=== PATIENT | male | born 1960 ===

== ENCOUNTER 2017-03-14 14:38 | Inpatient (IN) | payer BC ==
[2017-03-14 15:18] VITALS: BMI 28.3
--- NOTE | 2017-03-14 15:54 | ED PDOC ---
Arrival/HPI - General Chief Complaint: Abnormal Skin Integrity Time Seen by Provider: 03/14/17 15:23 Historian: Patient - History of Present Illness Narrative History of Present Illness (Text): 03/14/17 15:47 56-year-old diabetic male sent by Dr. Ghotra for infected right foot ulceration. Patient states he developed pain about 2 days ago. Patient states he is being followed by Dr. Ghotra in the wound center. The patient denies fevers or chills. No dizziness or weakness. Patient states he is not currently on antibiotics. Patient with prior amputation of the right fifth toe and now with continued ulceration. Time/Duration: Other (2 days) Past Medical History - Provider Review Nursing Documentation Reviewed: Yes - Travel History Have you recently traveled outside [place] w/in the past 3 mons?: No - Infectious Disease Hx of Infectious Diseases: None - Tetanus Immunization Tetanus Immunization: Unknown - Cardiac Hx Cardiac Disorders: Yes Hx Hypertension: Yes - Pulmonary Hx Respiratory Disorders: No - Neurological Hx Neurological Disorder: No - HEENT Hx HEENT Disorder: Yes Hx Macular Degeneration: (right macular edema) - Renal Hx Renal Disorder: No - Endocrine/Metabolic Hx Diabetes Mellitus Type 2: Yes (niddm) - Hematological/Oncological Hx Blood Transfusions: No Hx Blood Transfusion Reaction: No - Integumentary Hx Dermatological Disorder: No - Musculoskeletal/Rheumatological Hx Musculoskeletal Disorders: No - Gastrointestinal Hx Gastrointestinal Disorders: No - Genitourinary/Gynecological Hx Genitourinary Disorders: No - Psychiatric Hx Psychophysiologic Disorder: No Hx Substance Use: No - Surgical History Other/Comment: R 5th toe amputation - Anesthesia Hx Anesthesia: Yes Hx Anesthesia Reactions: No Hx Malignant Hyperthermia: No - Suicidal Assessment Feels Threatened In Home Enviroment: No Family/Social History - Physician Review Nursing Documentation Reviewed: Yes Family/Social History: Unknown Family HX Smoking Status: Former Smoker Hx Alcohol Use: No Hx Substance Use: No Hx Substance Use Treatment: No Allergies/Home Meds Allergies/Adverse Reactions: Allergies No Known Allergies Allergy (Verified 12/15/14 17:31) Home Medications: Home Meds Medication Instructions Recorded Confirmed Simvastatin 20 mg PO DAILY 07/08/13 03/14/17 Glimepiride [Amaryl] 4 mg PO BID 12/15/14 03/14/17 Carvedilol [Coreg] 1 tab PO BID 03/14/17 03/14/17 amLODIPine [Norvasc] 1 tab PO DAILY 03/14/17 03/14/17 metFORMIN [glucOPHAGE] 1 tab PO BID 03/14/17 03/14/17 Review of Systems - Review of Systems Constitutional: absent: Fatigue, Fevers Respiratory: absent: SOB, Cough Cardiovascular: absent: Chest Pain, Palpitations Gastrointestinal: absent: Abdominal Pain, Nausea, Vomiting Musculoskeletal: Arthralgias Skin: Skin Lesions (right foot) Neurological: absent: Headache, Dizziness Physical Exam Vital Signs Reviewed: Yes Vital Signs Temp Pulse Resp BP Pulse Ox 03/14/17 15:22 98.1 F 74 18 165/95 H 98 Temperature: Afebrile Blood Pressure: Hypertensive Pulse: Regular Respiratory Rate: Normal Appearance: Positive for: Well-Appearing, Non-Toxic, Comfortable Pain Distress: None Mental Status: Positive for: Alert and Oriented X 3 - Systems Exam Head: Present: Atraumatic Mouth: Present: Moist Mucous Membranes Neck: Present: Normal Range of Motion Respiratory/Chest: Present: Clear to Auscultation, Good Air Exchange. No: Respiratory Distress, Accessory Muscle Use Cardiovascular: Present: Regular Rate and Rhythm, Normal S1, S2. No: Murmurs Lower Extremity: Present: Normal ROM, Tenderness (right foot; + ulceration noted to right 5th toe. with surrounding erythema. minimal edema, sensation and distal pulses intact. cap refill <2. ), Swelling, Erythema, Neurovascularly Intact, Capillary Refill < 2 s. No: CALF TENDERNESS, Deformity Neurological: Present: GCS=15, Speech Normal Skin: Present: Warm, Dry Psychiatric: Present: Alert, Oriented x 3 Medical Decision Making ED Course and Treatment: 03/14/17 15:50 56-year-old diabetic male with right foot ulcer sent by dr. ghotra with rx for admission for infected foot ulcer. cbc: wnl cmp: wnl UA: blood cultures: pending xray right foot: no evidence of osteomyelitis telfaro IV. case discussed with dr. montalvo; accepts admission. all results discussed with patient. impression; infected diabetic foot ulceration admit to med/surg - Lab Interpretations Lab Results: 03/14/17 17:18 03/14/17 17:18 Lab Results 03/14/17 17:18: WBC 8.5, RBC 4.32, Hgb 13.1 L, Hct 37.9 L, MCV 87.7, MCH 30.3, MCHC 34.6, RDW 11.8, Plt Count 227, MPV 9.4, Gran % 70.8 H, Lymph % (Auto) 19.9 L, Knott % (Auto) 5.1, Eos % (Auto) 3.7, Baso % (Auto) 0.5, Gran # 5.99, Lymph # 1.7, Knott # 0.4, Eos # 0.3, Baso # 0.04 03/14/17 17:18: Sodium 138, Potassium 4.5, Chloride 104, Carbon Dioxide 27, Anion Gap 12, BUN 29 H, Creatinine 1.2, Est GFR ( Amer) > 60, Est GFR ( Non-Af Amer) > 60, Random Glucose 112 H, Calcium 9.4, Total Bilirubin 0.6, AST 28, ALT 46, Alkaline Phosphatase 50, Total Protein 7.0, Albumin 3.7, Globulin 3.3, Albumin/Globulin Ratio 1.1 03/14/17 17:16: POC Glucose (mg/dL) 119 H - RAD Interpretation Radiology Orders: 03/14/17 15:46 FOOT RIGHT 3 VIEWS ROUTINE [RAD] Stat - Medication Orders Current Medication Orders: Ceftaroline Fosamil 600 mg/ (Sodium Chloride) 100 mls @ 100 mls/hr IVPB STAT STA PRN Reason: Protocol Stop: 03/14/17 18:57 Last Admin: 03/14/17 18:41 Dose: 100 mls/hr eMAR Start Stop Document 03/14/17 18:41 OCS (Rec: 03/14/17 18:41 OCS [id number]) Intravenous Solution Start Date 03/14/17 Start Time 18:41 End Date 03/14/17 End time 19:41 Total Infusion Time 60 Disposition/Present on Arrival - Present on Arrival Any Indicators Present on Arrival: No History of DVT/PE: No History of Uncontrolled Diabetes: No Urinary Catheter: No History of Decub. Ulcer: No History Surgical Site Infection Following: None - Disposition Have Diagnosis and Disposition been Completed?: Yes Diagnosis: Diabetic ulcer of right foot Disposition: HOSPITALIZED Disposition Time: 15:58 Patient Plan: Admission Patient Problems: Current Active Problems Problem Status Onset Diabetic ulcer of right foot Acute Condition: FAIR Forms: [employer] ([place]ish)
[2017-03-14 17:44] LABS: HEMOGLOBIN 13.1 g/dL (14.0-18.0); RBC 4.32 10^6/uL (3.5-6.1); WHITE BLOOD COUNT 8.5 10^3/ul (4.5-11.0)
[2017-03-14 17:45] LABS: BASO # 0.04 K/mm3 (0.0-2.0); BASO % 0.5 % (0.0-3.0); EOS # 0.3 (0.0-0.7); EOS % 3.7 % (1.5-5.0); GRAN # 5.99 (1.4-6.5); GRAN % 70.8 % (50.0-68.0); LYMPH # 1.7 (1.2-3.4); LYMPH % 19.9 % (22.0-35.0); MEAN CELL VOLUME 87.7 fl (80.0-105.0); MEAN CORPUSCULAR HEMOGLOBIN 30.3 pg (25.0-35.0); MEAN CORPUSCULAR HGB CONC 34.6 g/dl (31.0-37.0); MEAN PLATELET VOLUME 9.4 fl (7.0-11.0); MONO # 0.4 (0.1-0.6); MONO % 5.1 % (1.0-6.0); RED CELL DISTRIBUTION WIDTH 11.8 % (11.5-14.5)
[2017-03-14 17:55] LABS: ALB/GLOB RATIO 1.1 (1.1-1.8); ALBUMIN 3.7 g/dL (3.0-4.8); ALT/SGPT 46 U/L (7-56); AST/SGOT 28 U/L (17-59); BLOOD UREA NITROGEN 29 mg/dL (7-21); CALCIUM 9.4 mg/dL (8.4-10.5); GFR AFRICAN-AMERICAN > 60; GFR NON-AFRICAN AMERICAN > 60
[2017-03-14] MEDS ORDERED: Ceftaroline 600 MG in Sodium Chloride 0.9% 100 ML IVPB STA (17:58)
--- NOTE | 2017-03-14 17:58 | RAD ---
PROCEDURE: Right Foot Radiographs. HISTORY: ulcer 5th toe COMPARISON: 12/18/2014 FINDINGS: BONES: Status post resection of the 5th digit. JOINTS: Normal. SOFT TISSUES: NormalFocal ulcer adjacent to the operative site. No compelling evidence for acute osteomyelitis. . OTHER FINDINGS: None. IMPRESSION: Soft tissue swelling/ ulceration at the operative site 5th digit. No evidence of acute osteomyelitis.
[2017-03-14 19:00] LABS: URINE BILIRUBIN NEGATIVE (NEGATIVE); URINE BLOOD SMALL (NEGATIVE); URINE GLUCOSE (UA) NEGATIVE (NEGATIVE); URINE LEUKOCYTE ESTERASE NEGATIVE Leu/uL (NEGATIVE); URINE NITRATE NEGATIVE (NEGATIVE); URINE PROTEIN 100 mg/dL (<30 mg/dL); URINE UROBILINOGEN 0.2 E.U./dL (<1 E.U./dL)
[2017-03-14 19:02] LABS: URINE APPEARANCE CLEAR (CLEAR); URINE COLOR YELLOW (YELLOW)
[2017-03-14 19:19] LABS: URINE WBC NEGATIVE /hpf (0-6)
[2017-03-14 19:20] LABS: URINE EPITHELIAL CELLS 0 - 2 /hpf (0-5)
[2017-03-14] MEDS: Vancomycin 1gm in NS 250ml 1 GM/250 ML BAG IVPB SCH (20:05)
[2017-03-14] MEDS: Piperacillin/Tazobact 3.375 gm 100 ML IVPB SCH (23:30)
[2017-03-15] MEDS: Piperacillin/Tazobact 3.375 gm 100 ML IVPB SCH (06:09)
--- NOTE | 2017-03-15 06:41 | HP ---
HISTORY OF PRESENT ILLNESS: The patient is a 56-year-old who was referred by Dr. Ghotra when he came here to the wound center for his right foot nonhealing ulcer. Patient states that he has been having increasing pain to his previous surgical site for the last 2 days, so when he came to wound center, he was referred to emergency room for IV antibiotics and further wound care. Denies any fever or chills. No nausea or vomiting. No diarrhea. No weakness. No dizziness. Patient had toe amputation done in December of 2014. PAST MEDICAL HISTORY: Significant for: 1. Hypertension. 2. Fmt-llszsje-ydisuwwoa diabetes. 3. Hyperlipidemia. 4. Diabetic retinopathy. SURGICAL HISTORY: Significant for: 1. Right shoulder dislocation surgery. 2. Status post tonsillectomy. 3. 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 SOCIAL HISTORY: He is . Lives with his . Denies alcohol use. No history of drug use. He used to be a smoker in the past. ALLERGIES: HE IS NOT ALLERGIC TO ANY MEDICATIONS. MEDICATIONS AT HOME: He is on metformin 850 twice a day, amlodipine 5 mg daily, carvedilol 3.125 twice a day, simvastatin 20 mg daily, glimepiride 4 mg twice a day. REVIEW OF SYSTEMS: Significant for right foot pain and swelling. PHYSICAL EXAMINATION: GENERAL: He is awake, alert, oriented, and communicative. VITAL SIGNS: He is afebrile, pulse 74, respirations 18, and blood pressure 165/95. LUNGS: Bilateral fair airflow. No rhonchi or crackles. HEART: S1 and S2 audible. ABDOMEN: Soft and nontender. No rebound and no guarding. NEUROLOGIC: Patient is awake and alert and able to communicate. EXTREMITIES: Right foot exam, he has erythema and swelling of his previous amputation site. LABORATORY DATA: WBC is 8.5, hemoglobin is 13, hematocrit is 37.9, and platelets 227. Chemistry: Sodium 138, potassium 4.5, chloride 104, CO2 27, BUN 29, creatinine 1.2, and blood sugar of 112. Urinalysis is unremarkable. ASSESSMENT: 1. Right fifth toe cellulitis, rule out osteomyelitis. 2. Non-insulin dependent diabetes. 3. Hypertension. 4. Hyperlipidemia. 5. Peripheral vascular disease. PLAN: We will start patient on Zosyn and vancomycin and monitor his blood sugar. Resume his diabetic medications. Dr. Ghotra for wound care and Dr. Hunter for antibiotics has been requested for his input. We will follow up this patient in a.m. Cami Zazueta MD
[2017-03-15] MEDS: Vancomycin 1gm in NS 250ml 1 GM/250 ML BAG IVPB SCH ×2 (06:42→18:59)
[2017-03-15] MEDS ORDERED: Non Formulary Medication (Simvastatin [Simvastatin] 20 MG) PO SCH (10:00)
--- NOTE | 2017-03-15 13:36 | CP.PCM.CON ---
<Víctor Bolivar - Last Filed: 03/15/17 13:49> History of Present Illness - History of Present Illness History of Present Illness: Infectious disease consultation. Attending: Dr. Amaro This is a 56 yo male with past medical hx of HTN, DM, HLD presenting with chief complaint of right foot pain/non healing ulcer. ID consulted for right foot cellulitis. Pt has had ulcer on foot which began worsening over past week. Pt was at appt with iron piler Dr. Ghotra and was told to come to ER because ulcer looked infected. Pt reports minimal pain. Denies fevers, chills, pus drainage, or other systemic sx. Pt does have hx of toe amputation of the right 5th digit. Pt seen and examined at bedside today. No acute distress. No fevers or events overnight. PMH: HTN, DM, HLD PSH: tonsillectomy, toe amputation Allergies: NKDA FH: DM, HTN in family Home meds: metformin, amlodipine, coreg, simvastatin, glimepiride Social hx: Former smoker. Denies drinking, drug use. Review of Systems - Review of Systems All systems: reviewed and no additional remarkable complaints except Review of Systems: negative except per HPI. Past Patient History - Infectious Disease Hx of Infectious Diseases: None - Tetanus Immunizations Tetanus Immunization: Unknown - Past Medical History & Family History Past Medical History?: Yes Past Family History: Reviewed and not pertinent - Past Social History Smoking Status: Former Smoker Chewing Tobacco Use: No Cigar Use: No Alcohol: None Drugs: Denies Home Situation {Lives}: Alone Domestic Violence: Negative - CARDIAC Hx Cardiac Disorders: Yes Hx Hypertension: Yes - PULMONARY Hx Respiratory Disorders: No - NEUROLOGICAL Hx Neurological Disorder: No - HEENT Hx HEENT Problems: Yes Hx Macular Degeneration: (right macular edema) - RENAL Hx Chronic Kidney Disease: No - ENDOCRINE/METABOLIC Hx Diabetes Mellitus Type 2: Yes (niddm) - HEMATOLOGICAL/ONCOLOGICAL Hx Blood Transfusions: No Hx Blood Transfusion Reaction: No - INTEGUMENTARY Hx Dermatological Problems: No - MUSCULOSKELETAL/RHEUMATOLOGICAL Hx Musculoskeletal Disorders: No - GASTROINTESTINAL Hx Gastrointestinal Disorders: No - GENITOURINARY/GYNECOLOGICAL Hx Genitourinary Disorders: No - PSYCHIATRIC Hx Psychophysiologic Disorder: No Hx Substance Use: No - SURGICAL HISTORY Other/Comment: R 5th toe amputation - ANESTHESIA Hx Anesthesia: Yes Hx Anesthesia Reactions: No Hx Malignant Hyperthermia: No Meds Allergies/Adverse Reactions: Allergies Allergy/AdvReac Type Severity Reaction Status Date / Time No Known Allergies Allergy Verified 03/14/17 23:58 - Medications Medications: Current Medications Amlodipine Besylate (Norvasc) 5 mg PO DAILY [facility] Last Admin: 03/15/17 09:19 Dose: 5 mg Atorvastatin Calcium (Lipitor) 10 mg PO DIN [facility] Carvedilol (Coreg) 3.125 mg PO BID [facility] Last Admin: 03/15/17 09:19 Dose: 3.125 mg Glimepiride (Amaryl) 4 mg PO BID [facility] Last Admin: 03/15/17 09:19 Dose: 4 mg Vancomycin HCl (Vancomycin 1gm) 1 gm in 250 mls @ 167 mls/hr IVPB Q12H [facility] PRN Reason: Protocol Last Admin: 03/15/17 06:42 Dose: 167 mls/hr Metformin HCl (Glucophage) 850 mg PO BID [facility] Last Admin: 03/15/17 09:19 Dose: 850 mg Physical Exam - Constitutional Appears: Non-toxic, No Acute Distress - Head Exam Head Exam: ATRAUMATIC, NORMAL INSPECTION, NORMOCEPHALIC - Eye Exam Eye Exam: EOMI, Normal appearance - ENT Exam ENT Exam: Mucous Membranes Moist - Neck Exam Neck exam: Positive for: Full Rom, Normal Inspection - Respiratory Exam Respiratory Exam: NORMAL BREATHING PATTERN. absent: Respiratory Distress - Cardiovascular Exam Cardiovascular Exam: +S1, +S2 - GI/Abdominal Exam GI & Abdominal Exam: Normal Bowel Sounds, Soft. absent: Tenderness - Extremities Exam Extremities exam: Negative for: normal inspection Additional comments: right foot cellulitis surrounding place of 5th digit, with erythema and warmth, nontender to palpation, no drainage of pus - Neurological Exam Neurological exam: Alert, CN II-XII Intact - Psychiatric Exam Psychiatric exam: Normal Affect, Normal Mood - Skin Skin Exam: Dry, Intact, Normal Color, Warm Results - Vital Signs Recent Vital Signs: Last Vital Signs Temp 98.9 F 03/15/17 07:30 Pulse 75 03/15/17 07:30 Resp 20 03/15/17 07:30 BP 156/77 H 03/15/17 07:30 Pulse Ox 99 03/15/17 07:30 - Labs Result Diagrams: 03/14/17 17:18 03/14/17 17:18 Labs: Laboratory Results - last 24 hr 03/14/17 03/15/17 03/15/17 23:21 07:19 11:12 POC Glucose (mg/dL) 249 H 182 H 227 H Assessment & Plan - Assessment and Plan (Free Text) Assessment: This is a 56 yo male with past medical hx of HTN, DM, HLD presenting with non healing ulcer and right foot cellulitis 1. Right foot cellulitis/diabetic foot ulcer -given 600 mg IV ceftaroline in ER, then 2 doses of IV zosyn -right foot x ray shows soft tissue swelling/ulceration at 5th digit, no evidence of osteomyelitis -no leukocytosis 1/2 -pt has been afebrile -blood culture pending -wound culture pending -we will speak to podiatry regarding possible need for MRI/bone scan to rule out osteo -continue vancomycin 1 g IV q 12 hrs -continue management and dressing per podiatry discussed with Dr. Amrao <Dawson Amaro - Last Filed: 03/15/17 16:02> Meds - Medications Medications: Current Medications Amlodipine Besylate (Norvasc) 5 mg PO DAILY [facility] Last Admin: 03/15/17 09:19 Dose: 5 mg Atorvastatin Calcium (Lipitor) 10 mg PO DIN [facility] Carvedilol (Coreg) 3.125 mg PO BID [facility] Last Admin: 03/15/17 09:19 Dose: 3.125 mg Glimepiride (Amaryl) 4 mg PO BID [facility] Last Admin: 03/15/17 09:19 Dose: 4 mg Vancomycin HCl (Vancomycin 1gm) 1 gm in 250 mls @ 167 mls/hr IVPB Q12H [facility] PRN Reason: Protocol Last Admin: 03/15/17 06:42 Dose: 167 mls/hr Metformin HCl (Glucophage) 850 mg PO BID [facility] Last Admin: 03/15/17 09:19 Dose: 850 mg Results - Vital Signs Recent Vital Signs: Last Vital Signs Temp 98.9 F 03/15/17 07:30 Pulse 75 03/15/17 07:30 Resp 20 03/15/17 07:30 BP 156/77 H 03/15/17 07:30 Pulse Ox 99 03/15/17 07:30 - Labs Result Diagrams: 03/14/17 17:18 03/14/17 17:18 Labs: Laboratory Results - last 24 hr 03/14/17 03/15/17 03/15/17 23:21 07:19 11:12 POC Glucose (mg/dL) 249 H 182 H 227 H Assessment & Plan - Assessment and Plan (Free Text) Assessment: Infectious Diseases Attending Physician Attestation Patient seen and examined, discussed with medical records assistant. I have reviewed the HPI, ROS, past medical, personal, social and family histories, physical exam, labs and imaging. I agree with the above findings, assessment and plan. In addition, we have started the patient on IV Vancomycin for infecred right foot ulcer, need to rule out osteomyelitis. Will await blood and wound cx and Podiatry evaluation. Patient may need further imaging to rule out osteomyelitis.
--- NOTE | 2017-03-15 22:31 | CP.PCM.CON ---
<Binh Gutierrez - Last Filed: 03/15/17 22:28> History of Present Illness - History of Present Illness History of Present Illness: 56 year old male with PMHx of HTN, DM, HLD seen at bedside after being sent to ED for infected ulceration of right foot at fifth digit amputation site. Patient states that his ulcer has been worsening over the last week. Since admission patient denies any new pedal complaints. Denies N/V/F/C/CP/SOB/D/ posterior calf pain. Review of Systems - Review of Systems Review of Systems: ROS as per HPI. All other systems reviewed and found to be negative Past Patient History - Infectious Disease Hx of Infectious Diseases: None - Tetanus Immunizations Tetanus Immunization: Unknown - Past Medical History & Family History Past Medical History?: Yes Past Family History: Reviewed and not pertinent - Past Social History Smoking Status: Former Smoker Chewing Tobacco Use: No Cigar Use: No Alcohol: None Drugs: Denies Home Situation {Lives}: Alone Domestic Violence: Negative - CARDIAC Hx Cardiac Disorders: Yes Hx Hypertension: Yes - PULMONARY Hx Respiratory Disorders: No - NEUROLOGICAL Hx Neurological Disorder: No - HEENT Hx HEENT Problems: Yes Hx Macular Degeneration: (right macular edema) - RENAL Hx Chronic Kidney Disease: No - ENDOCRINE/METABOLIC Hx Diabetes Mellitus Type 2: Yes (niddm) - HEMATOLOGICAL/ONCOLOGICAL Hx Blood Transfusions: No Hx Blood Transfusion Reaction: No - INTEGUMENTARY Hx Dermatological Problems: No - MUSCULOSKELETAL/RHEUMATOLOGICAL Hx Musculoskeletal Disorders: No - GASTROINTESTINAL Hx Gastrointestinal Disorders: No - GENITOURINARY/GYNECOLOGICAL Hx Genitourinary Disorders: No - PSYCHIATRIC Hx Psychophysiologic Disorder: No Hx Substance Use: No - SURGICAL HISTORY Other/Comment: R 5th toe amputation - ANESTHESIA Hx Anesthesia: Yes Hx Anesthesia Reactions: No Hx Malignant Hyperthermia: No Meds Allergies/Adverse Reactions: Allergies Allergy/AdvReac Type Severity Reaction Status Date / Time No Known Allergies Allergy Verified 03/14/17 23:58 - Medications Medications: Current Medications Amlodipine Besylate (Norvasc) 5 mg PO DAILY [facility] Last Admin: 03/15/17 09:19 Dose: 5 mg Atorvastatin Calcium (Lipitor) 10 mg PO DIN [facility] Last Admin: 03/15/17 19:55 Dose: 10 mg Carvedilol (Coreg) 3.125 mg PO BID [facility] Last Admin: 03/15/17 19:55 Dose: 3.125 mg Glimepiride (Amaryl) 4 mg PO BID [facility] Last Admin: 03/15/17 19:55 Dose: 4 mg Vancomycin HCl (Vancomycin 1gm) 1 gm in 250 mls @ 167 mls/hr IVPB Q12H [facility] PRN Reason: Protocol Last Admin: 03/15/17 18:59 Dose: 167 mls/hr Metformin HCl (Glucophage) 850 mg PO BID [facility] Last Admin: 03/15/17 19:55 Dose: 850 mg Physical Exam - Constitutional Appears: Well, Non-toxic, No Acute Distress - Extremities Exam Additional comments: LE focused exam: Vasc: DP/PT pulses palpable 1/4 b/l. Skin temperature warm to warm from proximal to distal. CFT < 3 seconds to all digits. Minimal edema noted to ulceration at right fifth digit amputation site Neuro: Epicritic and protective sensation grossly diminished b/l Derm: Superficial ulceration with granular base and macerated edges measuring roughly 1 cm x 1 cm x 0.1 cm noted to right fifth digit amputation site. Minimal erythematous periwound skin noted. No malodor, no purulent drainage, no other clinical signs of infection. Otherwise no open lesions, wounds maceration , xerosis, abnormal pigmentation or abnormal growths noted b/l MSK: Hx of R fifth digit amputation. No other gross deformities noted - Neurological Exam Neurological exam: Alert, Oriented x3 - Psychiatric Exam Psychiatric exam: Normal Affect, Normal Mood Results - Vital Signs Recent Vital Signs: Last Vital Signs Temp 98 F 03/15/17 16:34 Pulse 76 03/15/17 16:34 Resp 20 03/15/17 16:34 BP 130/80 03/15/17 16:34 Pulse Ox 98 03/15/17 16:34 - Labs Result Diagrams: 03/14/17 17:18 03/14/17 17:18 Labs: Laboratory Results - last 24 hr 03/14/17 03/15/17 03/15/17 23:21 07:19 11:12 POC Glucose (mg/dL) 249 H 182 H 227 H 03/15/17 03/15/17 16:06 21:29 POC Glucose (mg/dL) 176 H 173 H Assessment & Plan - Assessment and Plan (Free Text) Assessment: 56 year old male with PMHx of HTN, DM, HLD seen at bedside for infected diabetic ulceration of right fifth digit amputation site Plan: Patient seen and evaluated at bedside with attending Dr. Ghotra 1/2 absent leukocytosis Afebrile Wound cx right foot prelim: CP cocci 1/2 R foot xray: No evidence of acute OM 1/3 R foot MRI: pending F/u HgA1c F/u ESR Continue IV abx ID consult appreciated F/u arterial duplex Wound dressed with xeroform, DSD Podiatry will continue to follow while patient in house - Date & Time Date: 03/15/17 Time: 22:43 <Flor Ghotra - Last Filed: 03/16/17 14:31> Meds - Medications Medications: Current Medications Amlodipine Besylate (Norvasc) 5 mg PO DAILY [facility] Last Admin: 03/16/17 10:00 Dose: 5 mg Atorvastatin Calcium (Lipitor) 10 mg PO DIN [facility] Last Admin: 03/15/17 19:55 Dose: 10 mg Carvedilol (Coreg) 3.125 mg PO BID [facility] Last Admin: 03/16/17 10:00 Dose: 3.125 mg Glimepiride (Amaryl) 4 mg PO BID [facility] Last Admin: 03/16/17 10:00 Dose: 4 mg Cefazolin Sodium 2 gm/ Sodium (Chloride) 100 mls @ 200 mls/hr IVPB Q8 [facility] PRN Reason: Protocol Last Admin: 03/16/17 13:46 Dose: 200 mls/hr Lactic Acid (Lac-Hydrin 12% Cream (140 G)) 0 ea TOP DAILY PRN PRN Reason: Dry skin Metformin HCl (Glucophage) 850 mg PO BID [facility] Last Admin: 03/16/17 10:00 Dose: 850 mg Results - Vital Signs Recent Vital Signs: Last Vital Signs Temp 98.2 F 03/16/17 07:30 Pulse 68 03/16/17 07:30 Resp 20 03/16/17 07:30 BP 146/99 H 03/16/17 07:30 Pulse Ox 97 03/16/17 07:30 - Labs Result Diagrams: 03/14/17 17:18 03/14/17 17:18 Labs: Laboratory Results - last 24 hr 03/15/17 03/15/17 03/16/17 16:06 21:29 05:30 ESR 37 H POC Glucose (mg/dL) 176 H 173 H Hemoglobin A1c 03/16/17 03/16/17 03/16/17 05:30 07:31 11:38 ESR POC Glucose (mg/dL) 135 H 212 H Hemoglobin A1c 8.5 H Attending/Attestation - Attestation I have personally seen and examined this patient.: Yes I have fully participated in the care of the patient.: Yes I have reviewed all pertinent clinical information: Yes
[2017-03-15] MEDS ORDERED: Ammonium Lactate 12% Cream (140 g) TOP PRN (22:54)
--- NOTE | 2017-03-15 23:13 | PN ---
DATE: SUBJECTIVE: Patient is 56 years old, seen and examined, lying in bed, seems to be comfortable. No nausea or vomiting. No diarrhea. Eating and tolerating. PHYSICAL EXAMINATION: VITAL SIGNS: He is afebrile, pulse 76, respirations 20, blood pressure 130/80. LUNGS: Bilateral good airflow. No rhonchi or crackle. HEART: S1 and S2 audible. ABDOMEN: Soft, obese, nontender. No rebound. No guarding. NEUROLOGICAL: He is awake, alert, oriented, and communicative. LABORATORY DATA: Blood sugar is 176. His foot wound growing gram-positive cocci. Blood cultures are negative. Had MRI of the foot done. Results are pending. ASSESSMENT: 1. Right foot fifth toe cellulitis. 2. Ppi-lphejud-vwteywhvg diabetes. 3. Hypertension. 4. Hyperlipidemia. PLAN: Currently, patient is on his usual medication. He is on Teflaro and vancomycin. We will continue that. Monitoring blood sugar. We will reevaluate the patient in a.m. Cami Zazueta MD
[2017-03-16] MEDS: Vancomycin 1gm in NS 250ml 1 GM/250 ML BAG IVPB SCH (06:30)
--- NOTE | 2017-03-16 08:36 | MRI ---
PROCEDURE: MRI Right Foot HISTORY: Pain. COMPARISON: Right foot radiographs 03/14/2017 TECHNIQUE: Multiecho multiplanar sequences were performed through the right foot without the use of intravenous contrast. FINDINGS: BONES: Patient is again seen to be status post near complete amputation of the 5th digit. Signal dephasing limit the interpretation of this region. Signal abnormalities are seen in the distal 1st metatarsal bone as well as surrounding the residual portion of the base of the 5th digit limiting the ability to assist completely exclude potential osteomyelitis here. Remaining osseous elements throughout the right foot do not exhibit MR changes compatible with osteomyelitis, fracture or marrow edema. MUSCLES: A cellulitis and possible myositis pattern is seen affecting the dorsal and plantar foot soft tissues, particularly at the midfoot deep plantar soft tissues. SOFT TISSUES: As above. LISFRANC LIGAMENT: Normal. PLANTAR PLATE: Intact without signal abnormality or acute tear appreciable. EXTENSOR TENDONS: Intact without acute tear. FLEXOR TENDONS: Intact without acute tear. OTHER FINDINGS: None. IMPRESSION: Due to postoperative signal abnormality at the residual base of the 5th digit as well as minimally at the distal segment 5th metatarsal bone, is difficult to completely exclude osteomyelitis in these regions though advanced case is not appreciated. Otherwise, there is no evidence of osteomyelitis throughout the remainder of the right foot. Mild cellulitis pattern seen affecting the plantar greater than dorsal foot soft tissues without obvious abscess evident. Please see discussion above. Concordant preliminary report from [facility], 03/15/2017.
--- NOTE | 2017-03-16 13:25 | CP.PCM.PN ---
Subjective - Date & Time of Evaluation Date of Evaluation: 03/16/17 Time of Evaluation: 11:55 - Subjective Subjective: Comfortable in bed, less pain in the right foot, no fevers overnight. Objective - Vital Signs/Intake and Output Vital Signs (last 24 hours): Temp Pulse Resp BP Pulse Ox 98.2 F 68 20 146/99 H 97 03/16/17 07:30 03/16/17 07:30 03/16/17 07:30 03/16/17 07:30 03/16/17 07:30 Intake and Output: 03/16/17 03/16/17 06:59 18:59 Intake Total 840 Balance 840 - Medications Medications: Current Medications Amlodipine Besylate (Norvasc) 5 mg PO DAILY [facility] Last Admin: 03/16/17 10:00 Dose: 5 mg Atorvastatin Calcium (Lipitor) 10 mg PO DIN [facility] Last Admin: 03/15/17 19:55 Dose: 10 mg Carvedilol (Coreg) 3.125 mg PO BID [facility] Last Admin: 03/16/17 10:00 Dose: 3.125 mg Glimepiride (Amaryl) 4 mg PO BID [facility] Last Admin: 03/16/17 10:00 Dose: 4 mg Cefazolin Sodium 2 gm/ Sodium (Chloride) 100 mls @ 200 mls/hr IVPB Q8 [facility] PRN Reason: Protocol Lactic Acid (Lac-Hydrin 12% Cream (140 G)) 0 ea TOP DAILY PRN PRN Reason: Dry skin Metformin HCl (Glucophage) 850 mg PO BID [facility] Last Admin: 03/16/17 10:00 Dose: 850 mg - Constitutional Appears: Non-toxic - Head Exam Head Exam: NORMAL INSPECTION - ENT Exam ENT Exam: Mucous Membranes Moist - Neck Exam Neck Exam: absent: Meningismus - Respiratory Exam Respiratory Exam: Decreased Breath Sounds - Cardiovascular Exam Cardiovascular Exam: +S1, +S2 - GI/Abdominal Exam GI & Abdominal Exam: Soft. absent: Tenderness - Extremities Exam Additional comments: right foot with dressings in place Assessment and Plan - Assessment and Plan (Free Text) Plan: Assessment Right foot lateral infected ulcer in a patient S/P partial 5th ray amputation, cannot rule out osteomyelitis or post-op changes on MRI, growing MSSA HTN DM dyslipidemia Plan will change Vancomycin to Cefazolin and will monitor clinically; will discuss with Podiatry - would recommend 4 weeks of antibiotics, but can switch to PO antibiotics on discharge, to complete course of therapy - should have weekly ESR , CRP, CBC, CMP while on antibiotics
[2017-03-16] MEDS: ceFAZolin 2 GM in Sodium Chloride 0.9% 100 ML IVPB SCH ×2 (13:46→21:18)
--- NOTE | 2017-03-16 15:30 | US ---
PROCEDURE: Lower extremity YULISSA exam HISTORY: Peripheral vascular disease with ulceration right toe. Previous smoker. Diabetes. PHYSICIAN(S): Oh Decker MD. FINDINGS: The exam is limited by calcified vessels. The resting ABIs are inaccurate. The brachial systolic pressures are symmetric. The high thigh pressures are noncompressible. The high thigh PVR waveforms are relatively normal and symmetric. The calf PVR waveforms augment normally. The calf PVR waveforms are relatively normal. The left calf PVR waveform is slightly decreased in amplitude compared to the right. This is of uncertain significance. The ankle and metatarsal waveforms are relatively normal and symmetric. There may be mild tibial disease. IMPRESSION: 1. Limited study due to calcified vessels. 2. Mild tibial disease.
--- NOTE | 2017-03-16 18:30 | PN ---
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 The patient was evaluated and noted to have an ulceration of that area. He was admitted with an abscess. The patient was in Doppler and his Dopplers were reviewed; however, they are not read. PHYSICAL EXAMINATION: VITAL SIGNS: Show a temperature of 98.2. His pulse is 68. His blood pressure is 146/99, and his oxygen sat was 97 at room air. MEDICATIONS: His medications are noted on the MAY. He is presently on cefazolin as per Infectious Disease for his wound. He has wound culture of sensitive Staph aureus. His blood cultures were negative after 24 hours. His white blood cell count was 8.5. His H and H is 13.1 and 37.9. His granulocytes and lymphocytes are 70.8 and 19.9. ESR was 37. His hemoglobin A1c is 8.5. His BUN and creatinine was 29 and 1.2, and his glucose today is running at 212. The patient's lower extremities were reviewed and he does have an ulceration at the distal tip of that remnant of fifth proximal phalanx on his right foot. At this time, the cellulitis and the abscess has resolved with I and D and the IV antibiotics. Osteomyelitis cannot be ruled out. I did look at the MRI, that little piece of the proximal phalanx that was left in the foot, that is with enhancement indicating an osteomyelitis. However, the ESR was 37 which could be equivocal for an osteomyelitis. His ultrasound was noted above was not yet read. However, I did take a look at the ultrasound and the ultrasound is indicating that the patient has calcified vessels. His waveforms are decreased at the foot and ankle. However, I will speak to Dr. Decker before any definitive treatment is done on the patient. ASSESSMENT: Diabetic man with neuropathy and peripheral vascular disease with a Santana III ulceration to the right foot, most likely osteomyelitis to the fifth proximal phalanx remnant. PLAN OF TREATMENT: The best plan of treatment for this patient would be to surgically remove that small piece of bone and this way it would preclude him from having to have 4 to 6 weeks of IV antibiotics. However because of the peripheral vascular issues, I will speak with Vascular before any surgery is done. He is scheduled for Monday at 7:30 a.m. I did go over everything with the patient and he is amenable to the plan of care. Flor Ghotra DPM
[2017-03-16] MEDS ORDERED: guaiFENesin 100 mg/5 ml Syrup UD PO ONE (21:17)
--- NOTE | 2017-03-16 21:19 | PN ---
DATE: SUBJECTIVE: The patient is a 56-year-old, seen and examined, sitting in chair, seems to be comfortable. No nausea or vomiting. No diarrhea. PHYSICAL EXAMINATION VITAL SIGNS: He is afebrile, pulse 68, respirations 20 and blood pressure 146/99. LUNGS: Bilateral fair airflow. No rhonchi or crackles. HEART: S1 and S2 audible. ABDOMEN: Soft and nontender. No rebound. No guarding. NEUROLOGIC: The patient is awake, alert, oriented and communicate. LABORATORY DATA: ESR 37. Chemistry; blood sugar is 212. The patient had an MRI of the right foot, MRI cannot exclude osteomyelitis. ASSESSMENT: 1. Right fifth toe osteomyelitis. 2. Non-insulin dependent diabetes. 3. Hypertension. 4. Hyperlipidemia. PLAN: I will discuss with Dr. Ghotra. She will try to debride the piece of bone that is getting infected. In the meantime, we will continue the patient on current antibiotic, monitor blood sugar. We will follow up the patient in a.m. Cami Zazueta MD
[2017-03-17] MEDS: guaiFENesin DM 100 mg-10 mg/5 ml UD PO PRN ×2 (01:42→09:10)
[2017-03-17] MEDS: ceFAZolin 2 GM in Sodium Chloride 0.9% 100 ML IVPB SCH ×3 (05:21→21:13)
--- NOTE | 2017-03-17 06:38 | CP.PCM.PN ---
Subjective - Date & Time of Evaluation Date of Evaluation: 03/17/17 Time of Evaluation: 06:26 - Subjective Subjective: Patient was seen at bedside for his complaint of cough. Has no other complaints. Medical record was reviewed. This 56 year old male was admitted for non healing right foot ulcer. Has PMH of HTN, NIDDM , HLD, Diabetic neuropathy. Robitussin was ordered for cough. Later on nurse had called and informed that patient was ambulating, complaind of little chest pain with cough. 127/75;99.5*F;68/min;20/min; pulse ox 98% on RA. Objective - Vital Signs/Intake and Output Vital Signs (last 24 hours): Temp Pulse Resp BP Pulse Ox 98.2 F 65 20 139/80 95 03/16/17 16:00 03/16/17 16:00 03/16/17 16:00 03/16/17 16:00 03/16/17 16:00 Intake and Output: 03/16/17 03/17/17 18:59 06:59 Intake Total 960 1140 Balance 960 1140 - Medications Medications: Current Medications Amlodipine Besylate (Norvasc) 5 mg PO DAILY [facility] Last Admin: 03/16/17 10:00 Dose: 5 mg Atorvastatin Calcium (Lipitor) 10 mg PO DIN [facility] Last Admin: 03/16/17 17:03 Dose: 10 mg Carvedilol (Coreg) 3.125 mg PO BID [facility] Last Admin: 03/16/17 17:03 Dose: 3.125 mg Glimepiride (Amaryl) 4 mg PO BID [facility] Last Admin: 03/16/17 17:03 Dose: 4 mg Guaifenesin/Dextromethorphan (Robitussin Dm) 5 ml PO Q6 PRN PRN Reason: Cough Last Admin: 03/17/17 01:42 Dose: 5 ml Cefazolin Sodium 2 gm/ Sodium (Chloride) 100 mls @ 200 mls/hr IVPB Q8 [facility] PRN Reason: Protocol Last Admin: 03/17/17 05:21 Dose: 200 mls/hr Lactic Acid (Lac-Hydrin 12% Cream (140 G)) 0 ea TOP DAILY PRN PRN Reason: Dry skin Metformin HCl (Glucophage) 850 mg PO BID [facility] Last Admin: 03/16/17 17:03 Dose: 850 mg - Constitutional Appears: Well, No Acute Distress - Head Exam Head Exam: ATRAUMATIC, NORMAL INSPECTION, NORMOCEPHALIC - Eye Exam Eye Exam: Normal appearance - ENT Exam ENT Exam: Normal External Ear Exam - Neck Exam Neck Exam: Normal Inspection - Respiratory Exam Respiratory Exam: NORMAL BREATHING PATTERN - Cardiovascular Exam Cardiovascular Exam: absent: JVD - GI/Abdominal Exam GI & Abdominal Exam: absent: Distended - Rectal Exam Rectal Exam: Deferred - Exam Additional comments: Deferred. - Back Exam Back Exam: NORMAL INSPECTION - Neurological Exam Neurological Exam: Alert, Oriented x3 - Psychiatric Exam Psychiatric exam: Normal Affect, Normal Mood - Skin Skin Exam: Normal Color Assessment and Plan - Assessment and Plan (Free Text) Assessment: Cough . Chest pain. HTN. NIDDM. HLD. Plan: Robitussin 100 mg PO stat. Continue present management.
--- NOTE | 2017-03-17 13:47 | CP.PCM.PN ---
Subjective - Date & Time of Evaluation Date of Evaluation: 03/17/17 Time of Evaluation: 12:20 - Subjective Subjective: Comfortable, less pain in the right foot, no nausea, no diarrhea. Objective - Vital Signs/Intake and Output Vital Signs (last 24 hours): Temp Pulse Resp BP Pulse Ox 98.2 F 65 20 127/75 95 03/16/17 16:00 03/16/17 16:00 03/16/17 16:00 03/17/17 09:10 03/16/17 16:00 Intake and Output: 03/17/17 03/17/17 06:59 18:59 Intake Total 1140 Balance 1140 - Medications Medications: Current Medications Amlodipine Besylate (Norvasc) 5 mg PO DAILY [facility] Last Admin: 03/17/17 09:10 Dose: 5 mg Atorvastatin Calcium (Lipitor) 10 mg PO DIN [facility] Last Admin: 03/16/17 17:03 Dose: 10 mg Carvedilol (Coreg) 3.125 mg PO BID [facility] Last Admin: 03/17/17 09:09 Dose: 3.125 mg Glimepiride (Amaryl) 4 mg PO BID [facility] Last Admin: 03/17/17 09:10 Dose: 4 mg Guaifenesin/Dextromethorphan (Robitussin Dm) 5 ml PO Q6 PRN PRN Reason: Cough Last Admin: 03/17/17 09:10 Dose: 5 ml Cefazolin Sodium 2 gm/ Sodium (Chloride) 100 mls @ 200 mls/hr IVPB Q8 [facility] PRN Reason: Protocol Last Admin: 03/17/17 05:21 Dose: 200 mls/hr Lactic Acid (Lac-Hydrin 12% Cream (140 G)) 0 ea TOP DAILY PRN PRN Reason: Dry skin Metformin HCl (Glucophage) 850 mg PO BID [facility] Last Admin: 03/17/17 09:10 Dose: 850 mg - Constitutional Appears: Non-toxic - Head Exam Head Exam: NORMAL INSPECTION - ENT Exam ENT Exam: Mucous Membranes Moist - Neck Exam Neck Exam: absent: Meningismus - Respiratory Exam Respiratory Exam: Decreased Breath Sounds - Cardiovascular Exam Cardiovascular Exam: +S1, +S2 - GI/Abdominal Exam GI & Abdominal Exam: Soft. absent: Tenderness - Extremities Exam Additional comments: right foot with dressings in place Assessment and Plan - Assessment and Plan (Free Text) Plan: Assessment Right foot lateral infected ulcer in a patient S/P partial 5th ray amputation, cannot rule out osteomyelitis or post-op changes on MRI, growing MSSA HTN DM dyslipidemia Plan will change Vancomycin to Cefazolin and will monitor clinically; will discuss with Podiatry - would recommend 4 weeks of antibiotics, but can switch to PO antibiotics on discharge (ie. PO Zyvox), to complete course of therapy - should have weekly ESR, CRP, CBC, CMP while on antibiotics patient scheduled for OR on Monday but will need vascular studies first
[2017-03-17] MEDS: Albuterol-Ipratrop 3 mg / 0.5 (3 ml) UD IH SCH ×2 (13:59→21:17)
--- NOTE | 2017-03-17 16:24 | CP.PCM.PN ---
<Matt,Mark - Last Filed: 03/17/17 16:16> Subjective - Date & Time of Evaluation Date of Evaluation: 03/17/17 Time of Evaluation: 16:17 - Subjective Subjective: 56 year old male with PMHx of HTN, DM, HLD seen at bedside for infected ulceration of right foot at fifth digit amputation site with underlying OM. Patient is AAO x 3 and NAD resting comfortably in bed. Denies any acute overnight events. denies any new pedal complaints. Denies N/V/F/C/CP/SOB/D/ posterior calf pain. All patient's questions about his surgery on Monday answered to his satisfaction Objective - Vital Signs/Intake and Output Vital Signs (last 24 hours): Temp Pulse Resp BP Pulse Ox 98.2 F 65 20 127/75 95 03/16/17 16:00 03/17/17 14:03 03/16/17 16:00 03/17/17 09:10 03/16/17 16:00 Intake and Output: 03/17/17 03/17/17 06:59 18:59 Intake Total 1140 Balance 1140 - Medications Medications: Current Medications Albuterol/Ipratropium (Duoneb 3 Mg/0.5 Mg (3 Ml) Ud) 3 ml IH Q8H [facility] Last Admin: 03/17/17 13:59 Dose: 3 ml Amlodipine Besylate (Norvasc) 5 mg PO DAILY [facility] Last Admin: 03/17/17 09:10 Dose: 5 mg Atorvastatin Calcium (Lipitor) 10 mg PO DIN [facility] Last Admin: 03/16/17 17:03 Dose: 10 mg Carvedilol (Coreg) 3.125 mg PO BID [facility] Last Admin: 03/17/17 09:09 Dose: 3.125 mg Glimepiride (Amaryl) 4 mg PO BID [facility] Last Admin: 03/17/17 09:10 Dose: 4 mg Guaifenesin/Dextromethorphan (Robitussin Dm) 5 ml PO Q6 [facility] Cefazolin Sodium 2 gm/ Sodium (Chloride) 100 mls @ 200 mls/hr IVPB Q8 [facility] PRN Reason: Protocol Last Admin: 03/17/17 13:59 Dose: 200 mls/hr Lactic Acid (Lac-Hydrin 12% Cream (140 G)) 0 ea TOP DAILY PRN PRN Reason: Dry skin Loratadine (Claritin) 10 mg PO DAILY [facility] Last Admin: 03/17/17 14:02 Dose: 10 mg Metformin HCl (Glucophage) 850 mg PO BID [facility] Last Admin: 03/17/17 09:10 Dose: 850 mg - Constitutional Appears: Well, Non-toxic, No Acute Distress - Extremities Exam Additional comments: LE focused exam: Vasc: DP/PT pulses palpable 1/4 b/l. Skin temperature warm to warm from proximal to distal. CFT < 3 seconds to all digits. Minimal edema noted to ulceration at right fifth digit amputation site Neuro: Epicritic and protective sensation grossly diminished b/l Derm: Superficial ulceration with granular base and macerated edges measuring roughly 1 cm x 1 cm x 0.1 cm noted to right fifth digit amputation site. Minimal erythematous periwound skin noted. No malodor, no purulent drainage, no other clinical signs of infection. Otherwise no open lesions, wounds maceration , xerosis, abnormal pigmentation or abnormal growths noted b/l MSK: Hx of R fifth digit amputation. No other gross deformities noted - Neurological Exam Neurological Exam: Alert, Awake, Oriented x3 - Psychiatric Exam Psychiatric exam: Normal Affect, Normal Mood Assessment and Plan - Assessment and Plan (Free Text) Assessment: 56 year old male with PMHx of HTN, DM, HLD seen at bedside for infected diabetic ulceration of right fifth digit amputation site with underlying OM Plan: Patient seen and evaluated at bedside Plan discussed with attending Dr. Ghotra ESR 80 from 37 yesterday Wound cx R foot - MSSA 1/2 R foot xray: No evidence of acute OM MRI R foot: Possible OM R fifth ray RLE arterial duplex: Calcified vessels, mild tibial disease Continue IV abx per ID Patient to OR on 03/20 for fifth ray resection and wound debridement with Dr. Ghotra Podiatry will continue to follow while patient in house <Flor Ghotra - Last Filed: 03/20/17 07:57> Objective - Vital Signs/Intake and Output Vital Signs (last 24 hours): Temp Pulse Resp BP Pulse Ox 98.3 F 80 20 141/94 H 99 03/20/17 07:30 03/20/17 07:30 03/20/17 07:30 03/20/17 07:30 03/20/17 07:30 - Medications Medications: Current Medications Acetaminophen (Tylenol 325mg Tab) 650 mg PO Q6H PRN PRN Reason: Fever >100.4 F Last Admin: 03/19/17 22:28 Dose: 650 mg Albuterol/Ipratropium (Duoneb 3 Mg/0.5 Mg (3 Ml) Ud) 3 ml IH Q8H [facility] Last Admin: 03/20/17 04:20 Dose: 3 ml Amlodipine Besylate (Norvasc) 5 mg PO DAILY [facility] Last Admin: 03/19/17 09:47 Dose: 5 mg Atorvastatin Calcium (Lipitor) 10 mg PO DIN [facility] Last Admin: 03/19/17 17:43 Dose: 10 mg Carvedilol (Coreg) 3.125 mg PO BID [facility] Last Admin: 03/20/17 05:56 Dose: 3.125 mg Glimepiride (Amaryl) 4 mg PO BID [facility] Last Admin: 03/19/17 17:43 Dose: 4 mg Guaifenesin/Dextromethorphan (Robitussin Dm) 5 ml PO Q6 [facility] Last Admin: 03/20/17 05:36 Dose: Not Given Cefazolin Sodium 2 gm/ Sodium (Chloride) 100 mls @ 200 mls/hr IVPB Q8 [facility] PRN Reason: Protocol Last Admin: 03/20/17 05:35 Dose: 200 mls/hr Lactic Acid (Lac-Hydrin 12% Cream (140 G)) 0 ea TOP DAILY PRN PRN Reason: Dry skin Lactic Acid (Lac-Hydrin 12% Cream (140 G)) 0 ea TOP DAILY [facility] Last Admin: 03/19/17 10:00 Dose: 1 applic Loratadine (Claritin) 10 mg PO DAILY [facility] Last Admin: 03/19/17 09:47 Dose: 10 mg Metformin HCl (Glucophage) 850 mg PO BID [facility] Last Admin: 03/19/17 17:43 Dose: 850 mg Oseltamivir Phosphate (Tamiflu Cap) 75 mg PO BID [facility] PRN Reason: Protocol Stop: 03/24/17 18:01 Last Admin: 03/19/17 17:42 Dose: 75 mg Attending/Attestation - Attestation I have personally seen and examined this patient.: Yes I have fully participated in the care of the patient.: Yes I have reviewed all pertinent clinical information, including history, physical exam and plan: Yes
--- NOTE | 2017-03-17 18:11 | PN ---
DATE: 03/17/2017 SUBJECTIVE: The patient is 53 years old, seen and examined, complain of cough and congestion. PHYSICAL EXAMINATION: VITAL SIGNS: The patient is afebrile, pulse 65, respirations 20, and blood pressure 127/75. LUNGS: Bilateral fair airflow. HEENT: Complained of running stuffy nose. ABDOMEN: Soft, nontender. No rebound. No guarding. NEUROLOGICAL: The patient is awake, alert, and oriented. Able to communicate. LABORATORY DATA: ESR is 80. Chemistry showed blood sugar of 186. His right foot wound positive for staphylococcus aureus. ASSESSMENT: 1. Right 5th toe nonhealing ulcer with staphylococcus infection. 2. Peripheral vascular disease. 3. Diabetic neuropathy. 4. Non-insulin dependent diabetes. 5. Upper respiratory tract infection. PLAN: Currently, the patient is on Ancef and start him on nebulizer treatment. We will start him on antitussive, start him on Claritin. is probably going to take patient to OR for debridement, and will follow up the patient. Cami Zazueta MD
[2017-03-17] MEDS: guaiFENesin DM 100 mg-10 mg/5 ml UD PO SCH (18:27)
[2017-03-17] MEDS ORDERED: Vancomycin 1gm in NS 250ml 1 GM/250 ML BAG IVPB STA (20:07)
[2017-03-17] MEDS ORDERED: Piperacill/Tazo 4.5gm in NS 4.5 GM/100 ML BAG IVPB STA (20:07)
[2017-03-18] MEDS: guaiFENesin DM 100 mg-10 mg/5 ml UD PO SCH ×5 (00:29→23:40)
[2017-03-18] MEDS: Albuterol-Ipratrop 3 mg / 0.5 (3 ml) UD IH SCH ×4 (01:30→20:39)
[2017-03-18] MEDS: ceFAZolin 2 GM in Sodium Chloride 0.9% 100 ML IVPB SCH ×3 (05:46→22:20)
[2017-03-18] MEDS: Ammonium Lactate 12% Cream (140 g) TOP SCH (09:34)
--- NOTE | 2017-03-18 10:44 | CP.PCM.PN ---
<Michael Lazo - Last Filed: 03/18/17 10:40> Subjective - Date & Time of Evaluation Date of Evaluation: 03/18/17 Time of Evaluation: 10:40 - Subjective Subjective: Podiatry Progress Note - Dr. Mcguire 56 year old male with PMHx of HTN, DM, HLD seen and evaluated at bedside for right foot infected ulceration at 5th digit amptuation site + OM. Patient hemodynamically stable and NAD. ROBERT. Offers no pedal complaints this visit. Patient aware he is scheduled to go to OR on Monday. Denies N/V/F/D/C/SOB/calf pain. Objective - Vital Signs/Intake and Output Vital Signs (last 24 hours): Temp Pulse Resp BP Pulse Ox 99.3 F 78 18 145/83 98 03/18/17 07:30 03/18/17 07:30 03/18/17 07:30 03/18/17 07:30 03/18/17 07:30 Intake and Output: 03/18/17 03/18/17 06:59 18:59 Intake Total 720 Balance 720 - Medications Medications: Current Medications Acetaminophen (Tylenol 325mg Tab) 650 mg PO Q6H PRN PRN Reason: Fever >100.4 F Last Admin: 03/17/17 18:39 Dose: 650 mg Albuterol/Ipratropium (Duoneb 3 Mg/0.5 Mg (3 Ml) Ud) 3 ml IH Q8H [facility] Last Admin: 03/18/17 08:17 Dose: 3 ml Amlodipine Besylate (Norvasc) 5 mg PO DAILY [facility] Last Admin: 03/18/17 09:33 Dose: 5 mg Atorvastatin Calcium (Lipitor) 10 mg PO DIN [facility] Last Admin: 03/17/17 18:27 Dose: 10 mg Carvedilol (Coreg) 3.125 mg PO BID [facility] Last Admin: 03/18/17 09:33 Dose: 3.125 mg Glimepiride (Amaryl) 4 mg PO BID [facility] Last Admin: 03/18/17 09:33 Dose: 4 mg Guaifenesin/Dextromethorphan (Robitussin Dm) 5 ml PO Q6 [facility] Last Admin: 03/18/17 05:45 Dose: 5 ml Cefazolin Sodium 2 gm/ Sodium (Chloride) 100 mls @ 200 mls/hr IVPB Q8 [facility] PRN Reason: Protocol Last Admin: 03/18/17 05:46 Dose: 200 mls/hr Lactic Acid (Lac-Hydrin 12% Cream (140 G)) 0 ea TOP DAILY PRN PRN Reason: Dry skin Lactic Acid (Lac-Hydrin 12% Cream (140 G)) 0 ea TOP DAILY [facility] Last Admin: 03/18/17 09:34 Dose: 1 applic Loratadine (Claritin) 10 mg PO DAILY [facility] Last Admin: 03/18/17 09:33 Dose: 10 mg Metformin HCl (Glucophage) 850 mg PO BID [facility] Last Admin: 03/18/17 09:33 Dose: 850 mg - Constitutional Appears: Well, Non-toxic, No Acute Distress - Extremities Exam Additional comments: LE focused exam: Vasc: DP/PT pulses palpable 1/4 b/l. Skin temperature warm to warm from proximal to distal. CFT < 3 seconds to all digits. Minimal edema noted to ulceration at right fifth digit amputation site Neuro: Epicritic and protective sensation grossly diminished b/l Derm: Superficial ulceration with granular base and macerated edges measuring roughly 1 cm x 1 cm x 0.1 cm noted to right fifth digit amputation site. Minimal erythematous periwound skin noted. No malodor, no purulent drainage, no other clinical signs of infection. Otherwise no open lesions, wounds maceration , xerosis, abnormal pigmentation or abnormal growths noted b/l MSK: Hx of R fifth digit amputation. No other gross deformities noted - Neurological Exam Neurological Exam: Alert, Awake, Oriented x3 - Psychiatric Exam Psychiatric exam: Normal Affect, Normal Mood Assessment and Plan - Assessment and Plan (Free Text) Assessment: 56 year old male with PMHx of HTN, DM, HLD with infected diabetic ulceration of right fifth digit amputation site + OM Plan: Patient seen and evaluated at bedside with attending, Dr. Mcguire ESR 80 on 03/17/17 (previously 37 on 03/16/17) Wound cx R foot - MSSA 1/2 R foot xray: No evidence of acute OM MRI R foot: Possible OM R fifth ray RLE arterial duplex: Calcified vessels, mild tibial disease Continue IV abx per ID - d/c Vancomycin, changed to Cefazolin Patient to OR on 03/20/17 for fifth ray resection and wound debridement with Dr. Ghotra Podiatry will continue to follow while patient in house <Tommy Mcguire - Last Filed: 03/21/17 11:19> Objective - Vital Signs/Intake and Output Vital Signs (last 24 hours): Temp Pulse Resp BP Pulse Ox 98.0 F 80 18 139/89 97 03/21/17 07:30 03/21/17 10:58 03/21/17 07:30 03/21/17 10:58 03/21/17 07:30 Intake and Output: 03/21/17 03/21/17 06:59 18:59 Intake Total 660 Balance 660 - Medications Medications: Current Medications Acetaminophen (Tylenol 325mg Tab) 650 mg PO Q6H PRN PRN Reason: Fever >100.4 F Last Admin: 03/19/17 22:28 Dose: 650 mg Albuterol/Ipratropium (Duoneb 3 Mg/0.5 Mg (3 Ml) Ud) 3 ml IH Q8H [facility] Last Admin: 03/21/17 08:43 Dose: 3 ml Amlodipine Besylate (Norvasc) 5 mg PO DAILY [facility] Last Admin: 03/21/17 10:58 Dose: 5 mg Atorvastatin Calcium (Lipitor) 10 mg PO DIN [facility] Last Admin: 03/20/17 17:46 Dose: 10 mg Carvedilol (Coreg) 3.125 mg PO BID [facility] Last Admin: 03/21/17 10:58 Dose: 3.125 mg Glimepiride (Amaryl) 4 mg PO BID [facility] Last Admin: 03/21/17 10:58 Dose: 4 mg Guaifenesin/Dextromethorphan (Robitussin Dm) 10 ml PO Q6H [facility] Last Admin: 03/21/17 06:38 Dose: 10 ml Cefazolin Sodium 2 gm/ Sodium (Chloride) 100 mls @ 200 mls/hr IVPB Q8 [facility] PRN Reason: Protocol Last Admin: 03/21/17 06:38 Dose: 200 mls/hr Lactic Acid (Lac-Hydrin 12% Cream (140 G)) 0 ea TOP DAILY PRN PRN Reason: Dry skin Lactic Acid (Lac-Hydrin 12% Cream (140 G)) 0 ea TOP DAILY [facility] Last Admin: 03/21/17 10:59 Dose: 1 applic Loratadine (Claritin) 10 mg PO DAILY [facility] Last Admin: 03/21/17 10:58 Dose: 10 mg Metformin HCl (Glucophage) 850 mg PO BID [facility] Last Admin: 03/21/17 10:58 Dose: 850 mg Oseltamivir Phosphate (Tamiflu Cap) 75 mg PO BID [facility] PRN Reason: Protocol Stop: 03/24/17 18:01 Last Admin: 03/21/17 10:58 Dose: 75 mg Attending/Attestation - Attestation I have personally seen and examined this patient.: Yes I have fully participated in the care of the patient.: Yes I have reviewed all pertinent clinical information, including history, physical exam and plan: Yes
--- NOTE | 2017-03-18 11:41 | PN ---
DATE: 03/18/2017 SUBJECTIVE: The patient has no complaints of any chest pain or shortness of breath. No headaches or dizziness. PHYSICAL EXAMINATION: VITAL SIGNS: Temperature is 99.3, pulse is 78, blood pressure is 145/83, and respirations are 18. GENERAL: The patient is lying in bed, flat, comfortable. HEENT: No oral lesion. Anicteric sclerae. Moist mucosa. NECK: No JVD, adenopathy, or thyromegaly. CARDIOVASCULAR: S1 and S2, regular. No murmurs, rubs, or gallops. LUNGS: Clear to auscultation bilaterally. No wheeze, rales, or rhonchi. ABDOMEN: Bowel sounds are positive, soft, nontender and nondistended. EXTREMITIES: No cyanosis, clubbing or edema. LABORATORY DATA: No new labs. ASSESSMENT: 1. Right fifth toe nonhealing ulcer secondary to Staphylococcus aureus infection. 2. Peripheral arterial disease. 3. Diabetic neuropathy. 4. Diabetes type 2. PLAN: The patient is currently comfortable. The patient's antibiotics were changed to Cefazolin. The patient is going to need about 4 weeks of antibiotics. He is scheduled to go to the OR on Monday by Podiatry. The patient is on Amaryl for diabetes. He is on Claritin for his congestion. He is receiving Lipitor for dyslipidemia. The patient is on Tylenol as needed. He is on heart heathy diet. He is currently comfortable. Eduard Bergman MD
--- NOTE | 2017-03-18 13:30 | RAD ---
HISTORY: rule out pneumonia COMPARISON: No prior. TECHNIQUE: Chest PA and lateral FINDINGS: LUNGS: Mild interstitial changes. PLEURA: No significant pleural effusion identified. No pneumothorax apparent. CARDIOVASCULAR: Normal. OSSEOUS STRUCTURES: Wedge compression deformity of a lower thoracic vertebral body with exaggerated thoracic kyphosis. VISUALIZED UPPER ABDOMEN: Normal. OTHER FINDINGS: None. IMPRESSION: Mild interstitial changes. Wedge compression deformity of a lower thoracic vertebral body with exaggerated thoracic kyphosis.
--- NOTE | 2017-03-18 13:43 | CP.PCM.PN ---
Subjective - Date & Time of Evaluation Date of Evaluation: 03/18/17 Time of Evaluation: 12:10 - Subjective Subjective: Had fevers overnight but none this morning, no chills, no dysuria, no cough. Objective - Vital Signs/Intake and Output Vital Signs (last 24 hours): Temp Pulse Resp BP Pulse Ox 99.3 F 78 18 145/83 98 03/18/17 07:30 03/18/17 07:30 03/18/17 07:30 03/18/17 07:30 03/18/17 07:30 Intake and Output: 03/18/17 03/18/17 06:59 18:59 Intake Total 720 Balance 720 - Medications Medications: Current Medications Acetaminophen (Tylenol 325mg Tab) 650 mg PO Q6H PRN PRN Reason: Fever >100.4 F Last Admin: 03/17/17 18:39 Dose: 650 mg Albuterol/Ipratropium (Duoneb 3 Mg/0.5 Mg (3 Ml) Ud) 3 ml IH Q8H [facility] Last Admin: 03/18/17 08:17 Dose: 3 ml Amlodipine Besylate (Norvasc) 5 mg PO DAILY [facility] Last Admin: 03/18/17 09:33 Dose: 5 mg Atorvastatin Calcium (Lipitor) 10 mg PO DIN [facility] Last Admin: 03/17/17 18:27 Dose: 10 mg Carvedilol (Coreg) 3.125 mg PO BID [facility] Last Admin: 03/18/17 09:33 Dose: 3.125 mg Glimepiride (Amaryl) 4 mg PO BID [facility] Last Admin: 03/18/17 09:33 Dose: 4 mg Guaifenesin/Dextromethorphan (Robitussin Dm) 5 ml PO Q6 [facility] Last Admin: 03/18/17 05:45 Dose: 5 ml Cefazolin Sodium 2 gm/ Sodium (Chloride) 100 mls @ 200 mls/hr IVPB Q8 [facility] PRN Reason: Protocol Last Admin: 03/18/17 05:46 Dose: 200 mls/hr Lactic Acid (Lac-Hydrin 12% Cream (140 G)) 0 ea TOP DAILY PRN PRN Reason: Dry skin Lactic Acid (Lac-Hydrin 12% Cream (140 G)) 0 ea TOP DAILY [facility] Last Admin: 03/18/17 09:34 Dose: 1 applic Loratadine (Claritin) 10 mg PO DAILY [facility] Last Admin: 03/18/17 09:33 Dose: 10 mg Metformin HCl (Glucophage) 850 mg PO BID [facility] Last Admin: 03/18/17 09:33 Dose: 850 mg - Constitutional Appears: Non-toxic - Head Exam Head Exam: NORMAL INSPECTION - Respiratory Exam Respiratory Exam: Decreased Breath Sounds - Cardiovascular Exam Cardiovascular Exam: +S1, +S2 - GI/Abdominal Exam GI & Abdominal Exam: Soft. absent: Tenderness - Extremities Exam Additional comments: right foot with dressings in place Assessment and Plan - Assessment and Plan (Free Text) Plan: Assessment new onset fever R/O new onset sepsis Right foot lateral infected ulcer in a patient S/P partial 5th ray amputation, cannot rule out osteomyelitis or post-op changes on MRI, growing MSSA HTN DM dyslipidemia Plan gave a dose of IV Vanco and Cefepime and repeated blood, urine cx, CXR, PCT continue Cefazolin and will monitor clinically; will discuss with Podiatry - would recommend 4 weeks of antibiotics, but can switch to PO antibiotics on discharge (ie. PO Zyvox), to complete course of therapy - should have weekly ESR , CRP, CBC, CMP while on antibiotics patient scheduled for OR on Monday but will need vascular studies first
[2017-03-18 23:55] LABS: URINE BILIRUBIN NEGATIVE (NEGATIVE); URINE BLOOD SMALL (NEGATIVE); URINE GLUCOSE (UA) NEGATIVE (NEGATIVE); URINE LEUKOCYTE ESTERASE NEGATIVE Leu/uL (NEGATIVE); URINE NITRATE NEGATIVE (NEGATIVE); URINE PROTEIN >=300 mg/dL (<30 mg/dL); URINE UROBILINOGEN 0.2 E.U./dL (<1 E.U./dL)
[2017-03-18 23:57] LABS: URINE COLOR YELLOW (YELLOW)
[2017-03-18 23:58] LABS: URINE APPEARANCE CLEAR (CLEAR)
[2017-03-19 00:20] LABS: URINE AMORPHOUS SEDIMENT FEW; URINE BACTERIA RARE (NEG); URINE EPITHELIAL CELLS 0 - 2 /hpf (0-5); URINE RBC 0 - 2 /hpf (0-2); URINE WBC 0 - 2 /hpf (0-6)
[2017-03-19] MEDS: ceFAZolin 2 GM in Sodium Chloride 0.9% 100 ML IVPB SCH ×3 (05:43→22:22)
[2017-03-19] MEDS: Albuterol-Ipratrop 3 mg / 0.5 (3 ml) UD IH SCH ×2 (08:23→14:01)
[2017-03-19] MEDS: Ammonium Lactate 12% Cream (140 g) TOP SCH (10:00)
[2017-03-19] MEDS: guaiFENesin DM 100 mg-10 mg/5 ml UD PO SCH ×2 (11:44→17:42)
--- NOTE | 2017-03-19 12:37 | CP.PCM.PN ---
Subjective - Date & Time of Evaluation Date of Evaluation: 03/19/17 Time of Evaluation: 11:40 - Subjective Subjective: Had fevers the past 2 nights, now with positive Influenza test. Fever is starting to subside. Objective - Vital Signs/Intake and Output Vital Signs (last 24 hours): Temp Pulse Resp BP Pulse Ox 99.2 F 82 18 142/87 97 03/19/17 07:30 03/19/17 09:47 03/19/17 07:30 03/19/17 09:47 03/19/17 07:30 Intake and Output: 03/19/17 03/19/17 06:59 18:59 Intake Total 480 Balance 480 - Medications Medications: Current Medications Acetaminophen (Tylenol 325mg Tab) 650 mg PO Q6H PRN PRN Reason: Fever >100.4 F Last Admin: 03/18/17 17:09 Dose: 650 mg Albuterol/Ipratropium (Duoneb 3 Mg/0.5 Mg (3 Ml) Ud) 3 ml IH Q8H [facility] Last Admin: 03/19/17 08:23 Dose: 3 ml Amlodipine Besylate (Norvasc) 5 mg PO DAILY [facility] Last Admin: 03/19/17 09:47 Dose: 5 mg Atorvastatin Calcium (Lipitor) 10 mg PO DIN [facility] Last Admin: 03/18/17 17:09 Dose: 10 mg Carvedilol (Coreg) 3.125 mg PO BID [facility] Last Admin: 03/19/17 09:47 Dose: 3.125 mg Glimepiride (Amaryl) 4 mg PO BID [facility] Last Admin: 03/19/17 09:47 Dose: 4 mg Guaifenesin/Dextromethorphan (Robitussin Dm) 5 ml PO Q6 [facility] Last Admin: 03/18/17 23:40 Dose: 5 ml Cefazolin Sodium 2 gm/ Sodium (Chloride) 100 mls @ 200 mls/hr IVPB Q8 [facility] PRN Reason: Protocol Last Admin: 03/19/17 05:43 Dose: 200 mls/hr Lactic Acid (Lac-Hydrin 12% Cream (140 G)) 0 ea TOP DAILY PRN PRN Reason: Dry skin Lactic Acid (Lac-Hydrin 12% Cream (140 G)) 0 ea TOP DAILY [facility] Last Admin: 03/18/17 09:34 Dose: 1 applic Loratadine (Claritin) 10 mg PO DAILY [facility] Last Admin: 03/19/17 09:47 Dose: 10 mg Metformin HCl (Glucophage) 850 mg PO BID [facility] Last Admin: 03/19/17 09:47 Dose: 850 mg - Constitutional Appears: Non-toxic - Head Exam Head Exam: NORMAL INSPECTION - ENT Exam ENT Exam: Mucous Membranes Moist - Neck Exam Neck Exam: absent: Meningismus - Respiratory Exam Respiratory Exam: Decreased Breath Sounds - Cardiovascular Exam Cardiovascular Exam: +S1, +S2 - GI/Abdominal Exam GI & Abdominal Exam: Soft. absent: Tenderness Assessment and Plan - Assessment and Plan (Free Text) Plan: Assessment new onset fever due to sepsis from systemic viral illness with Influenza Right foot lateral infected ulcer in a patient S/P partial 5th ray amputation, cannot rule out osteomyelitis or post-op changes on MRI, growing MSSA HTN DM dyslipidemia Plan will start Tamiflu and put on droplet precautions continue Cefazolin and will monitor clinically; would recommend 4 weeks of antibiotics, but can switch to PO antibiotics on discharge (ie. PO Zyvox), to complete course of therapy - should have weekly ESR, CRP, CBC, CMP while on antibiotics patient scheduled for OR on Monday but will need vascular studies first
--- NOTE | 2017-03-19 13:50 | PN ---
DATE: SUBJECTIVE: The patient has no complaints of any chest pain or shortness of breath. No headaches or dizziness. PHYSICAL EXAMINATION: VITAL SIGNS: Temperature is 99.2, pulse of 88.2, blood pressure 142/80, and respirations 18. GENERAL: The patient is lying in bed, flat, comfortable. HEENT: No oral lesion. Anicteric sclerae. Moist mucosa. NECK: No JVD, adenopathy, or thyromegaly. CARDIOVASCULAR: S1 and S2, regular. No murmurs, rubs, or gallops. LUNGS: Clear to auscultation bilaterally. No wheeze, rales, or rhonchi. ABDOMEN: Bowel sounds are positive, soft, nontender and nondistended. EXTREMITIES: No cyanosis, clubbing or edema. LABS: White count of 8.5, hemoglobin 13.1. Creatinine 1.2. Chest x-ray done shows mildly interstitial changes. There is a wedge-shaped compression deformity of the lower thoracic vertebra with an exaggerated thoracic kyphosis. ASSESSMENT: 1. Right fifth toe nonhealing ulcer secondary to Staphylococcus aureus. 2. Peripheral arterial disease. 3. Diabetic neuropathy. 4. Diabetes type 2. 5. Thoracic kyphosis secondary to wedge-shaped compression deformity of the lower thoracic vertebral body. PLAN: The patient is going to the OR tomorrow. The patient is on Claritin for his allergies. He is on Amaryl for his diabetes. The patient is going to continue with metformin for his diabetes. He is on Norvasc for his hypertension. He is on cough medication with guaifenesin and dextromethorphan. Eduard Bergman MD
--- NOTE | 2017-03-19 16:01 | CP.PCM.PN ---
<Michale Lazo - Last Filed: 03/19/17 15:28> Subjective - Date & Time of Evaluation Date of Evaluation: 03/19/17 Time of Evaluation: 15:29 - Subjective Subjective: Podiatry Progress Note - Drs. Mcguire/Paradise 56 year old male with PMHx of HTN, DM, HLD seen and evaluated at bedside for right foot infected ulceration at 5th digit amptuation site + OM. Patient hemodynamically stable and NAD. ROBERT. Offers no pedal complaints this visit. Patient aware he is scheduled to go to OR tomorrow morning and will be NPO after midnight. Denies N/V/F/D/C/SOB/calf pain. Objective - Vital Signs/Intake and Output Vital Signs (last 24 hours): Temp Pulse Resp BP Pulse Ox 99.2 F 82 18 142/87 97 03/19/17 07:30 03/19/17 09:47 03/19/17 07:30 03/19/17 09:47 03/19/17 07:30 Intake and Output: 03/19/17 03/19/17 06:59 18:59 Intake Total 480 Balance 480 - Medications Medications: Current Medications Acetaminophen (Tylenol 325mg Tab) 650 mg PO Q6H PRN PRN Reason: Fever >100.4 F Last Admin: 03/18/17 17:09 Dose: 650 mg Albuterol/Ipratropium (Duoneb 3 Mg/0.5 Mg (3 Ml) Ud) 3 ml IH Q8H [facility] Last Admin: 03/19/17 14:01 Dose: 3 ml Amlodipine Besylate (Norvasc) 5 mg PO DAILY [facility] Last Admin: 03/19/17 09:47 Dose: 5 mg Atorvastatin Calcium (Lipitor) 10 mg PO DIN [facility] Last Admin: 03/18/17 17:09 Dose: 10 mg Carvedilol (Coreg) 3.125 mg PO BID [facility] Last Admin: 03/19/17 09:47 Dose: 3.125 mg Glimepiride (Amaryl) 4 mg PO BID [facility] Last Admin: 03/19/17 09:47 Dose: 4 mg Guaifenesin/Dextromethorphan (Robitussin Dm) 5 ml PO Q6 [facility] Last Admin: 03/19/17 11:44 Dose: 5 ml Cefazolin Sodium 2 gm/ Sodium (Chloride) 100 mls @ 200 mls/hr IVPB Q8 [facility] PRN Reason: Protocol Last Admin: 03/19/17 13:35 Dose: 200 mls/hr Lactic Acid (Lac-Hydrin 12% Cream (140 G)) 0 ea TOP DAILY PRN PRN Reason: Dry skin Lactic Acid (Lac-Hydrin 12% Cream (140 G)) 0 ea TOP DAILY [facility] Last Admin: 03/19/17 10:00 Dose: 1 applic Loratadine (Claritin) 10 mg PO DAILY [facility] Last Admin: 03/19/17 09:47 Dose: 10 mg Metformin HCl (Glucophage) 850 mg PO BID [facility] Last Admin: 03/19/17 09:47 Dose: 850 mg Oseltamivir Phosphate (Tamiflu Cap) 75 mg PO BID [facility] PRN Reason: Protocol Stop: 03/24/17 18:01 - Constitutional Appears: Well, Non-toxic, No Acute Distress - Extremities Exam Additional comments: LE focused exam: Vasc: DP/PT pulses palpable 1/4 b/l. Skin temperature warm to warm from proximal to distal. CFT < 3 seconds to all digits. Minimal edema noted to ulceration at right fifth digit amputation site Neuro: Epicritic and protective sensation grossly diminished b/l Derm: Superficial ulceration with granular base and macerated edges measuring roughly 1 cm x 1 cm x 0.1 cm noted to right fifth digit amputation site. Minimal erythematous periwound skin noted. No malodor, no purulent drainage, no other clinical signs of infection. Otherwise no open lesions, wounds maceration , xerosis, abnormal pigmentation or abnormal growths noted b/l MSK: Hx of R fifth digit amputation. No other gross deformities noted - Neurological Exam Neurological Exam: Alert, Awake, Oriented x3 - Psychiatric Exam Psychiatric exam: Normal Affect, Normal Mood Assessment and Plan - Assessment and Plan (Free Text) Assessment: 56 year old male with PMHx of HTN, DM, HLD with infected diabetic ulceration of right fifth digit amputation site + OM Plan: Patient seen and evaluated at bedside Discussed with attending, Dr. Ghotra Patient febrile overnight (Tmax 100.6), afebrile currently ESR 80 on 03/17/17 (previously 37 on 03/16/17) Wound cx R foot - MSSA 1/2 R foot xray: No evidence of acute OM MRI R foot: Possible OM R fifth ray RLE arterial duplex: Calcified vessels, mild tibial disease Wound cleansed with saline and dressed with xeroform, DSD Continue IV abx per ID - d/c Vancomycin, changed to Cefazolin Patient to OR tomorrow 03/20/17 for fifth ray resection and wound debridement with Dr. Ghotra NPO @ [place] [facility]ry will continue to follow while patient in house <Flor Ghotra - Last Filed: 03/20/17 07:58> Objective - Vital Signs/Intake and Output Vital Signs (last 24 hours): Temp Pulse Resp BP Pulse Ox 98.3 F 80 20 141/94 H 99 03/20/17 07:30 03/20/17 07:30 03/20/17 07:30 03/20/17 07:30 03/20/17 07:30 - Medications Medications: Current Medications Acetaminophen (Tylenol 325mg Tab) 650 mg PO Q6H PRN PRN Reason: Fever >100.4 F Last Admin: 03/19/17 22:28 Dose: 650 mg Albuterol/Ipratropium (Duoneb 3 Mg/0.5 Mg (3 Ml) Ud) 3 ml IH Q8H [facility] Last Admin: 03/20/17 04:20 Dose: 3 ml Amlodipine Besylate (Norvasc) 5 mg PO DAILY [facility] Last Admin: 03/19/17 09:47 Dose: 5 mg Atorvastatin Calcium (Lipitor) 10 mg PO DIN [facility] Last Admin: 03/19/17 17:43 Dose: 10 mg Carvedilol (Coreg) 3.125 mg PO BID [facility] Last Admin: 03/20/17 05:56 Dose: 3.125 mg Glimepiride (Amaryl) 4 mg PO BID [facility] Last Admin: 03/19/17 17:43 Dose: 4 mg Guaifenesin/Dextromethorphan (Robitussin Dm) 5 ml PO Q6 [facility] Last Admin: 03/20/17 05:36 Dose: Not Given Cefazolin Sodium 2 gm/ Sodium (Chloride) 100 mls @ 200 mls/hr IVPB Q8 [facility] PRN Reason: Protocol Last Admin: 03/20/17 05:35 Dose: 200 mls/hr Lactic Acid (Lac-Hydrin 12% Cream (140 G)) 0 ea TOP DAILY PRN PRN Reason: Dry skin Lactic Acid (Lac-Hydrin 12% Cream (140 G)) 0 ea TOP DAILY [facility] Last Admin: 03/19/17 10:00 Dose: 1 applic Loratadine (Claritin) 10 mg PO DAILY [facility] Last Admin: 03/19/17 09:47 Dose: 10 mg Metformin HCl (Glucophage) 850 mg PO BID [facility] Last Admin: 03/19/17 17:43 Dose: 850 mg Oseltamivir Phosphate (Tamiflu Cap) 75 mg PO BID [facility] PRN Reason: Protocol Stop: 03/24/17 18:01 Last Admin: 03/19/17 17:42 Dose: 75 mg Attending/Attestation - Attestation I have personally seen and examined this patient.: Yes I have fully participated in the care of the patient.: Yes I have reviewed all pertinent clinical information, including history, physical exam and plan: Yes
[2017-03-20] MEDS: guaiFENesin DM 100 mg-10 mg/5 ml UD PO SCH ×2 (00:36→05:36)
[2017-03-20] MEDS: Albuterol-Ipratrop 3 mg / 0.5 (3 ml) UD IH SCH ×3 (04:20→23:00)
[2017-03-20] MEDS: ceFAZolin 2 GM in Sodium Chloride 0.9% 100 ML IVPB SCH ×3 (05:35→22:23)
[2017-03-20] MEDS ORDERED: Lidocaine 2% Inj (20ml) ONE (07:19)
[2017-03-20] MEDS ORDERED: Bupivacaine 0.5% Inj(30mL) ONE (07:19)
--- NOTE | 2017-03-20 07:58 | PN ---
DATE: 03/20/2017 SUBJECTIVE: The patient has no complaints of any chest pain. No shortness of breath. No headaches. PHYSICAL EXAMINATION: VITAL SIGNS: Temperature is 101, pulse of 80, blood pressure is 141/94, respirations 20. GENERAL: The patient is lying in bed, flat, comfortable. HEENT: No oral lesion. Anicteric sclerae. Moist mucosa. NECK: No JVD, adenopathy, or thyromegaly. CARDIOVASCULAR: S1 and S2, regular. No murmurs, rubs, or gallops. LUNGS: Clear to auscultation bilaterally. No wheeze, rales, or rhonchi. ABDOMEN: Bowel sounds are positive, soft, nontender and nondistended. EXTREMITIES: No cyanosis, clubbing or edema. LABORATORY DATA: Labs are reviewed. ASSESSMENT: 1. Fever, new onset. 2. Right fifth toe nonhealing ulcer secondary to Staphylococcus. 3. Peripheral arterial disease. 4. Diabetic neuropathy. 5. Diabetes type 2. 6. Thoracic kyphosis secondary to wedge-shaped compression deformity of the lower thoracic vertebral body. PLAN: The patient is being followed by Podiatry and ID. I appreciated their input. The patient is currently on cefazolin for antibiotics. He is getting local wound care. The patient is scheduled for the OR today for fifty toe resection and to have wound debridement. He is currently on Claritin. He is going to continue with his metformin for his diabetes and Lipitor for dyslipidemia. The patient is on Norvasc for hypertension. Eduard Bergman MD
[2017-03-20] MEDS: Ammonium Lactate 12% Cream (140 g) TOP SCH (10:19)
[2017-03-20] MEDS: guaiFENesin DM 200 mg-20 mg/10 ml UD PO SCH ×2 (13:18→17:46)
--- NOTE | 2017-03-20 15:34 | CP.PCM.PN ---
Subjective - Date & Time of Evaluation Date of Evaluation: 03/20/17 Time of Evaluation: 15:30 - Subjective Subjective: Podiatry Progress Note - Drs. Mcguire/Paradise 56 year old male with PMHx of HTN, DM, HLD seen and evaluated at bedside for right foot infected ulceration at 5th digit amptuation site + OM. Patient hemodynamically stable AAO x 3 and NAD. Denies any acute overnight events. Offers no pedal complaints this visit. Patient was scheduled for OR this morning but surgery was cancelled because patient has the flu. Patient states that he is feeling better at this time. Denies N/V/F/D/C/SOB/calf pain. Objective - Vital Signs/Intake and Output Vital Signs (last 24 hours): Temp Pulse Resp BP Pulse Ox 98.9 F 73 20 153/83 H 99 03/20/17 10:32 03/20/17 10:32 03/20/17 07:30 03/20/17 10:32 03/20/17 07:30 Intake and Output: 03/20/17 03/20/17 06:59 18:59 Intake Total 480 Balance 480 - Medications Medications: Current Medications Acetaminophen (Tylenol 325mg Tab) 650 mg PO Q6H PRN PRN Reason: Fever >100.4 F Last Admin: 03/19/17 22:28 Dose: 650 mg Albuterol/Ipratropium (Duoneb 3 Mg/0.5 Mg (3 Ml) Ud) 3 ml IH Q8H [facility] Last Admin: 03/20/17 13:07 Dose: Not Given Amlodipine Besylate (Norvasc) 5 mg PO DAILY [facility] Last Admin: 03/20/17 10:18 Dose: 5 mg Atorvastatin Calcium (Lipitor) 10 mg PO DIN [facility] Last Admin: 03/19/17 17:43 Dose: 10 mg Carvedilol (Coreg) 3.125 mg PO BID [facility] Last Admin: 03/20/17 10:18 Dose: Not Given Glimepiride (Amaryl) 4 mg PO BID [facility] Last Admin: 03/20/17 10:18 Dose: Not Given Guaifenesin/Dextromethorphan (Robitussin Dm) 10 ml PO Q6H [facility] Last Admin: 03/20/17 13:18 Dose: 10 ml Cefazolin Sodium 2 gm/ Sodium (Chloride) 100 mls @ 200 mls/hr IVPB Q8 [facility] PRN Reason: Protocol Last Admin: 03/20/17 14:32 Dose: 200 mls/hr Lactic Acid (Lac-Hydrin 12% Cream (140 G)) 0 ea TOP DAILY PRN PRN Reason: Dry skin Lactic Acid (Lac-Hydrin 12% Cream (140 G)) 0 ea TOP DAILY [facility] Last Admin: 03/20/17 10:19 Dose: Not Given Loratadine (Claritin) 10 mg PO DAILY [facility] Last Admin: 03/20/17 10:17 Dose: 10 mg Metformin HCl (Glucophage) 850 mg PO BID [facility] Last Admin: 03/20/17 10:18 Dose: 850 mg Oseltamivir Phosphate (Tamiflu Cap) 75 mg PO BID [facility] PRN Reason: Protocol Stop: 03/24/17 18:01 Last Admin: 03/20/17 10:17 Dose: 75 mg - Constitutional Appears: Well, Non-toxic, No Acute Distress - Extremities Exam Additional comments: LE focused exam: Vasc: DP/PT pulses palpable 1/4 b/l. Skin temperature warm to warm from proximal to distal. CFT < 3 seconds to all digits. Minimal edema noted to ulceration at right fifth digit amputation site Neuro: Epicritic and protective sensation grossly diminished b/l Derm: Superficial ulceration with granular base and macerated edges measuring roughly 1 cm x 1 cm x 0.1 cm noted to right fifth digit amputation site. Minimal erythematous periwound skin noted. No malodor, no purulent drainage, no other clinical signs of infection. Otherwise no open lesions, wounds maceration , xerosis, abnormal pigmentation or abnormal growths noted b/l MSK: Hx of R fifth digit amputation. No other gross deformities noted - Neurological Exam Neurological Exam: Alert, Awake, Oriented x3 - Psychiatric Exam Psychiatric exam: Normal Affect, Normal Mood Assessment and Plan - Assessment and Plan (Free Text) Assessment: 56 year old male with PMHx of HTN, DM, HLD with infected diabetic ulceration of right fifth digit amputation site + OM Plan: Patient seen and evaluated at bedside Plan discussed with attending Dr. Ghotra Pt sx cancelled this morning because patient has flu Sx rescheduled for Monday03/22/17 at 7:30 AM Patient made aware Patient afebrile Wound cx R foot - MSSA 1/2 R foot xray: No evidence of acute OM MRI R foot: Possible OM R fifth ray RLE arterial duplex: Calcified vessels, mild tibial disease Continue IV abx Wound dressed with xeroform, DSD Podiatry will continue to follow while patient in house
--- NOTE | 2017-03-20 16:54 | CP.PCM.PN ---
Subjective - Date & Time of Evaluation Date of Evaluation: 03/20/17 Time of Evaluation: 13:05 - Subjective Subjective: For surgery today. Developed Influenza infection and is being treated for this. Objective - Vital Signs/Intake and Output Vital Signs (last 24 hours): Temp Pulse Resp BP Pulse Ox 98.9 F 73 20 153/83 H 99 03/20/17 10:32 03/20/17 10:32 03/20/17 07:30 03/20/17 10:32 03/20/17 07:30 - Medications Medications: Current Medications Acetaminophen (Tylenol 325mg Tab) 650 mg PO Q6H PRN PRN Reason: Fever >100.4 F Last Admin: 03/19/17 22:28 Dose: 650 mg Albuterol/Ipratropium (Duoneb 3 Mg/0.5 Mg (3 Ml) Ud) 3 ml IH Q8H [facility] Last Admin: 03/20/17 04:20 Dose: 3 ml Amlodipine Besylate (Norvasc) 5 mg PO DAILY [facility] Last Admin: 03/20/17 10:18 Dose: 5 mg Atorvastatin Calcium (Lipitor) 10 mg PO DIN [facility] Last Admin: 03/19/17 17:43 Dose: 10 mg Carvedilol (Coreg) 3.125 mg PO BID [facility] Last Admin: 03/20/17 10:18 Dose: Not Given Glimepiride (Amaryl) 4 mg PO BID [facility] Last Admin: 03/20/17 10:18 Dose: Not Given Guaifenesin/Dextromethorphan (Robitussin Dm) 10 ml PO Q6H [facility] Cefazolin Sodium 2 gm/ Sodium (Chloride) 100 mls @ 200 mls/hr IVPB Q8 [facility] PRN Reason: Protocol Last Admin: 03/20/17 05:35 Dose: 200 mls/hr Lactic Acid (Lac-Hydrin 12% Cream (140 G)) 0 ea TOP DAILY PRN PRN Reason: Dry skin Lactic Acid (Lac-Hydrin 12% Cream (140 G)) 0 ea TOP DAILY [facility] Last Admin: 03/20/17 10:19 Dose: Not Given Loratadine (Claritin) 10 mg PO DAILY [facility] Last Admin: 03/20/17 10:17 Dose: 10 mg Metformin HCl (Glucophage) 850 mg PO BID [facility] Last Admin: 01/08/18 10:18 Dose: 850 mg Oseltamivir Phosphate (Tamiflu Cap) 75 mg PO BID [facility] PRN Reason: Protocol Stop: 03/24/17 18:01 Last Admin: 03/20/17 10:17 Dose: 75 mg - Constitutional Appears: Non-toxic - Head Exam Head Exam: NORMAL INSPECTION - Respiratory Exam Respiratory Exam: Decreased Breath Sounds - Cardiovascular Exam Cardiovascular Exam: +S1, +S2 - GI/Abdominal Exam GI & Abdominal Exam: Soft. absent: Tenderness Assessment and Plan - Assessment and Plan (Free Text) Plan: Assessment new onset fever due to sepsis from systemic viral illness with Influenza Right foot lateral infected ulcer in a patient S/P partial 5th ray amputation, cannot rule out osteomyelitis or post-op changes on MRI, growing MSSA HTN DM dyslipidemia Plan continue Tamiflu dy 2 of 5 and put on droplet precautions continue Cefazolin and will monitor clinically; would recommend 4 weeks of antibiotics, but can switch to PO antibiotics on discharge (ie. PO Zyvox), to complete course of therapy - should have weekly ESR, CRP, CBC, CMP while on antibiotics follow up results of the surgery to be done today
[2017-03-21] MEDS: guaiFENesin DM 200 mg-20 mg/10 ml UD PO SCH ×5 (00:42→23:18)
[2017-03-21] MEDS: ceFAZolin 2 GM in Sodium Chloride 0.9% 100 ML IVPB SCH ×3 (06:38→23:10)
[2017-03-21] MEDS: Albuterol-Ipratrop 3 mg / 0.5 (3 ml) UD IH SCH ×2 (08:43→16:32)
[2017-03-21] MEDS: Ammonium Lactate 12% Cream (140 g) TOP SCH (10:59)
--- NOTE | 2017-03-21 11:36 | CP.PCM.PN ---
<Binh Gutierrez - Last Filed: 03/21/17 11:20> Subjective - Date & Time of Evaluation Date of Evaluation: 03/21/17 Time of Evaluation: 11:20 - Subjective Subjective: Podiatry Progress Note - Drs. Mcguire/Paradise 56 year old male with PMHx of HTN, DM, HLD seen and evaluated at bedside for right foot infected ulceration at 5th digit amptuation site + OM. Patient is AAO x 3 and NAD resting comfortably in bed. Denies any acute overnight events. Offers no pedal complaints this visit. Patient states that overall he is feeling well without symptoms of the flu. Denies N/V/F/D/C/SOB/calf pain. Objective - Vital Signs/Intake and Output Vital Signs (last 24 hours): Temp Pulse Resp BP Pulse Ox 98.0 F 80 18 139/89 97 03/21/17 07:30 03/21/17 10:58 03/21/17 07:30 03/21/17 10:58 03/21/17 07:30 Intake and Output: 03/21/17 03/21/17 06:59 18:59 Intake Total 660 Balance 660 - Medications Medications: Current Medications Acetaminophen (Tylenol 325mg Tab) 650 mg PO Q6H PRN PRN Reason: Fever >100.4 F Last Admin: 03/19/17 22:28 Dose: 650 mg Albuterol/Ipratropium (Duoneb 3 Mg/0.5 Mg (3 Ml) Ud) 3 ml IH Q8H [facility] Last Admin: 03/21/17 08:43 Dose: 3 ml Amlodipine Besylate (Norvasc) 5 mg PO DAILY [facility] Last Admin: 03/21/17 10:58 Dose: 5 mg Atorvastatin Calcium (Lipitor) 10 mg PO DIN [facility] Last Admin: 03/20/17 17:46 Dose: 10 mg Carvedilol (Coreg) 3.125 mg PO BID [facility] Last Admin: 03/21/17 10:58 Dose: 3.125 mg Glimepiride (Amaryl) 4 mg PO BID [facility] Last Admin: 03/21/17 10:58 Dose: 4 mg Guaifenesin/Dextromethorphan (Robitussin Dm) 10 ml PO Q6H [facility] Last Admin: 03/21/17 06:38 Dose: 10 ml Cefazolin Sodium 2 gm/ Sodium (Chloride) 100 mls @ 200 mls/hr IVPB Q8 [facility] PRN Reason: Protocol Last Admin: 03/21/17 06:38 Dose: 200 mls/hr Lactic Acid (Lac-Hydrin 12% Cream (140 G)) 0 ea TOP DAILY PRN PRN Reason: Dry skin Lactic Acid (Lac-Hydrin 12% Cream (140 G)) 0 ea TOP DAILY [facility] Last Admin: 03/21/17 10:59 Dose: 1 applic Loratadine (Claritin) 10 mg PO DAILY [facility] Last Admin: 03/21/17 10:58 Dose: 10 mg Metformin HCl (Glucophage) 850 mg PO BID [facility] Last Admin: 03/21/17 10:58 Dose: 850 mg Oseltamivir Phosphate (Tamiflu Cap) 75 mg PO BID [facility] PRN Reason: Protocol Stop: 03/24/17 18:01 Last Admin: 03/21/17 10:58 Dose: 75 mg - Constitutional Appears: Well, Non-toxic, No Acute Distress - Extremities Exam Additional comments: LE focused exam: Vasc: DP/PT pulses palpable 1/4 b/l. Skin temperature warm to warm from proximal to distal. CFT < 3 seconds to all digits. Minimal edema noted to ulceration at right fifth digit amputation site Neuro: Epicritic and protective sensation grossly diminished b/l Derm: Superficial ulceration with granular base roughly 1 cm x 1 cm x 0.1 cm noted to right fifth digit amputation site. No maceration noted to wound edges at this time. Minimal erythematous periwound skin noted. No malodor, no purulent drainage, no other clinical signs of infection. Otherwise no open lesions, wounds maceration, xerosis, abnormal pigmentation or abnormal growths noted b/l MSK: Hx of R fifth digit amputation. No other gross deformities noted - Neurological Exam Neurological Exam: Alert, Awake, Oriented x3 - Psychiatric Exam Psychiatric exam: Normal Affect, Normal Mood Assessment and Plan - Assessment and Plan (Free Text) Assessment: 56 year old male with PMHx of HTN, DM, HLD with infected diabetic ulceration of right fifth digit amputation site + OM Plan: Patient seen and evaluated at bedside Plan discussed with attending Dr. Mcguire Patient afebrile Wound cx R foot - MSSA 1/2 R foot xray: No evidence of acute OM MRI R foot: Possible OM R fifth ray RLE arterial duplex: Calcified vessels, mild tibial disease Continue abx Patient for OR tomorrow, 03/21/17 NPO except meds after midnight tonight Wound dressed with xeroform, DSD Podiatry will continue to follow while patient in house <Tommy Mcguire - Last Filed: 03/24/17 11:23> Objective - Vital Signs/Intake and Output Vital Signs (last 24 hours): Temp Pulse Resp BP Pulse Ox 98.0 F 56 L 18 151/82 H 96 03/23/17 07:30 03/23/17 07:30 03/23/17 07:30 03/23/17 07:30 03/23/17 07:30 Attending/Attestation - Attestation I have personally seen and examined this patient.: Yes I have fully participated in the care of the patient.: Yes I have reviewed all pertinent clinical information, including history, physical exam and plan: Yes
--- NOTE | 2017-03-21 15:05 | CP.PCM.PN ---
Subjective - Date & Time of Evaluation Date of Evaluation: 03/21/17 Time of Evaluation: 10:35 - Subjective Subjective: Patient is awaiting surgery on his right foot, no fevers overnight, not in distress. Objective - Vital Signs/Intake and Output Vital Signs (last 24 hours): Temp Pulse Resp BP Pulse Ox 98.0 F 80 18 139/89 97 03/21/17 07:30 03/21/17 07:30 03/21/17 07:30 03/21/17 07:30 03/21/17 07:30 Intake and Output: 03/21/17 03/21/17 06:59 18:59 Intake Total 660 Balance 660 - Medications Medications: Current Medications Acetaminophen (Tylenol 325mg Tab) 650 mg PO Q6H PRN PRN Reason: Fever >100.4 F Last Admin: 03/19/17 22:28 Dose: 650 mg Albuterol/Ipratropium (Duoneb 3 Mg/0.5 Mg (3 Ml) Ud) 3 ml IH Q8H [facility] Last Admin: 03/21/17 08:43 Dose: 3 ml Amlodipine Besylate (Norvasc) 5 mg PO DAILY [facility] Last Admin: 03/20/17 10:18 Dose: 5 mg Atorvastatin Calcium (Lipitor) 10 mg PO DIN [facility] Last Admin: 03/20/17 17:46 Dose: 10 mg Carvedilol (Coreg) 3.125 mg PO BID [facility] Last Admin: 03/20/17 17:46 Dose: 3.125 mg Glimepiride (Amaryl) 4 mg PO BID [facility] Last Admin: 03/20/17 17:46 Dose: 4 mg Guaifenesin/Dextromethorphan (Robitussin Dm) 10 ml PO Q6H [facility] Last Admin: 03/21/17 06:38 Dose: 10 ml Cefazolin Sodium 2 gm/ Sodium (Chloride) 100 mls @ 200 mls/hr IVPB Q8 [facility] PRN Reason: Protocol Last Admin: 03/21/17 06:38 Dose: 200 mls/hr Lactic Acid (Lac-Hydrin 12% Cream (140 G)) 0 ea TOP DAILY PRN PRN Reason: Dry skin Lactic Acid (Lac-Hydrin 12% Cream (140 G)) 0 ea TOP DAILY [facility] Last Admin: 03/20/17 10:19 Dose: Not Given Loratadine (Claritin) 10 mg PO DAILY [facility] Last Admin: 03/20/17 10:17 Dose: 10 mg Metformin HCl (Glucophage) 850 mg PO BID [facility] Last Admin: 03/20/17 17:46 Dose: 850 mg Oseltamivir Phosphate (Tamiflu Cap) 75 mg PO BID [facility] PRN Reason: Protocol Stop: 03/24/17 18:01 Last Admin: 03/20/17 17:46 Dose: 75 mg - Constitutional Appears: Non-toxic - Head Exam Head Exam: NORMAL INSPECTION - Neck Exam Neck Exam: absent: Meningismus - Respiratory Exam Respiratory Exam: Decreased Breath Sounds - Cardiovascular Exam Cardiovascular Exam: +S1, +S2 - GI/Abdominal Exam GI & Abdominal Exam: Soft. absent: Tenderness - Extremities Exam Additional comments: right foot with dressings in place Assessment and Plan - Assessment and Plan (Free Text) Plan: Assessment new onset fever due to sepsis from systemic viral illness with Influenza Right foot lateral infected ulcer in a patient S/P partial 5th ray amputation, cannot rule out osteomyelitis or post-op changes on MRI, growing MSSA HTN DM dyslipidemia Plan continue Tamiflu day 3 of 5 and continue droplet precautions continue Cefazolin and will monitor clinically; would recommend 4 weeks of antibiotics, but can switch to PO antibiotics on discharge (ie. PO Zyvox), to complete course of therapy - should have weekly ESR, CRP, CBC, CMP while on antibiotics awaitng surgery for the right foot
--- NOTE | 2017-03-21 21:52 | CARD ---
APPROVED REPORT EKG Measurement Heart [id number] <Conclusion> Normal sinus rhythm Normal ECG
--- NOTE | 2017-03-21 23:55 | PN ---
DATE: 03/21/2017 SUBJECTIVE: The patient has no complaints of any chest pain. No shortness or headache. PHYSICAL EXAMINATION VITAL SIGNS: Temperature is 97.9, pulse is 75, blood pressure is 148/87. GENERAL: The patient lying in bed, uncomfortable, and in no acute distress. HEENT: Atraumatic and normocephalic. Anicteric sclerae. Moist mucosa. [place] conjunctivae. No oral lesions. NECK: No JVD, anterior and posterior adenopathy, thyromegaly, or bruits. CARDIOVASCULAR: S1 and S2 regular. No murmur, rubs, or gallop. LUNGS: Clear to auscultation bilaterally. No wheezes, rales, or rhonchi. ABDOMEN: Bowel sounds are positive. Soft, nontender and nondistended. No hepatosplenomegaly. No rebound and no guarding EXTREMITIES: No cyanosis, clubbing, or edema. NEUROLOGIC: No facial asymmetry. Tongue is midline. No uvula deviation. Power is 5/5 upper extremity and lower extremity. Sensation intact in upper extremity and lower extremity. PSYCHIATRIC: She is awake, alert and oriented x3. No anxiety or depression. She has normal affect. GENITOURINARY: No CVA tenderness. VASCULAR: 2+ pulses in the carotid pulses and pedal pulses. SKIN: No erythema or nodules SPINE: Shows normal curvature. LABORATORY DATA: White count 8.5 and hemoglobin 13.1. Creatinine is 1.2. ASSESSMENT: 1. Right fifth toe nonhealing ulcer, status post debridement. 2. Fever, resolved. 3. Peripheral arterial disease. 4. Diabetic neuropathy. 5. Diabetes type 2. 6. Thoracic kyphosis. PLAN: The patient is currently comfortable. He had his procedure earlier today. The patient is on loratadine for his congestion. He is receiving glimepiride for his diabetes. The patient is on metformin for his diabetes as well as Norvasc for hypertension. The patient is being followed by Dr. Amaro. The patient is going to need 4 weeks of antibiotics. We can switch the patient over to p.o. Zyvox and discharge the patient home. Eduard Bergman MD [facility] # [id number]
[2017-03-22] MEDS: Albuterol-Ipratrop 3 mg / 0.5 (3 ml) UD IH SCH ×4 (02:12→23:10)
[2017-03-22] MEDS: ceFAZolin 2 GM in Sodium Chloride 0.9% 100 ML IVPB SCH ×3 (05:55→21:50)
[2017-03-22] MEDS: guaiFENesin DM 200 mg-20 mg/10 ml UD PO SCH ×3 (05:55→18:25)
[2017-03-22] MEDS ORDERED: Lidocaine 2% Inj (20ml) ONE (07:18)
[2017-03-22] MEDS ORDERED: Propofol 10 mg/ml Inj (20 ML) ONE (08:02)
[2017-03-22] MEDS ORDERED: Midazolam 2 MG/2 ML VIAL ONE (08:03)
[2017-03-22] MEDS ORDERED: Lidocaine 2% Inj (20ml) IJ ONE (08:10)
[2017-03-22] MEDS ORDERED: Lactated Ringer's 1,000 ML IV SCH (08:15)
--- NOTE | 2017-03-22 09:21 | PCM.SURG1 ---
Surgeon's Initial Post Op Note - Surgeon's Notes Surgeon: Dr. Flor Ghotra, DPM Recreational Leader: Binh Gutierrez, PGY1 Type of Anesthesia: IV Sedation, Local Anesthesia Administered By: Dr. Corea Pre-Operative Diagnosis: Infected diabetic ulcer with underlying osteomyelitis of right fifth digit Operative Findings: See dictation report. M- 3-0 vicryl, 3-0 nylon, adaptic, gauze, coban. I- Preop 10 cc 2% lidocaine plain Post-Operative Diagnosis: Same Operation Performed: Debridement of right fifth digit ulceration with removal of remaining fifth proximal phalanx and fifth metatarsal head Specimen/Specimens Removed: Bone right foot Estimated Blood Loss: EBL {In ML}: 20 Blood Products Given: N/A Drains Used: No Drains Post-Op Condition: Good Date of Surgery/Procedure: 03/22/17 Time of Surgery/Procedure: 09:22
[2017-03-22] MEDS ORDERED: Oxycodone/Acetaminophen 5/325 mg Tab PO PRN ×2 (09:56)
[2017-03-22] MEDS: Ammonium Lactate 12% Cream (140 g) TOP SCH (11:57)
--- NOTE | 2017-03-22 12:49 | RAD ---
PROCEDURE: Right Foot Radiographs. HISTORY: s/p right foot partial fifth ray resection for OM COMPARISON: 03/14/2017 FINDINGS: BONES: Postoperative changes are seen in the 5th digit. There is complete resection of the proximal phalanx and partial resection of the distal metatarsal. There are no complicating factors JOINTS: Normal. SOFT TISSUES: Normal. OTHER FINDINGS: None. IMPRESSION: Postoperative changes are seen in the 5th digit. There is complete resection of the proximal phalanx and partial resection of the distal metatarsal. There are no complicating factors
--- NOTE | 2017-03-22 16:59 | CP.PCM.PN ---
Subjective - Date & Time of Evaluation Date of Evaluation: 03/22/17 Time of Evaluation: 11:25 - Subjective Subjective: Comfortable, no more fevers, no pain in the right foot currently, no diarrhea. Objective - Vital Signs/Intake and Output Vital Signs (last 24 hours): Temp Pulse Resp BP Pulse Ox 98.4 F 69 14 160/83 H 98 03/22/17 09:46 03/22/17 09:46 03/22/17 09:46 03/22/17 09:46 03/22/17 09:46 Intake and Output: 03/22/17 03/22/17 06:59 18:59 Intake Total 600 Balance 600 - Medications Medications: Current Medications Acetaminophen (Tylenol 325mg Tab) 650 mg PO Q6H PRN PRN Reason: Fever >100.4 F Last Admin: 03/19/17 22:28 Dose: 650 mg Albuterol/Ipratropium (Duoneb 3 Mg/0.5 Mg (3 Ml) Ud) 3 ml IH Q8H [facility] Last Admin: 03/22/17 07:16 Dose: 3 ml Amlodipine Besylate (Norvasc) 5 mg PO DAILY [facility] Last Admin: 03/21/17 10:58 Dose: 5 mg Atorvastatin Calcium (Lipitor) 10 mg PO DIN [facility] Last Admin: 03/21/17 17:32 Dose: 10 mg Carvedilol (Coreg) 3.125 mg PO BID [facility] Last Admin: 03/22/17 07:45 Dose: 3.125 mg Glimepiride (Amaryl) 4 mg PO BID [facility] Last Admin: 03/21/17 17:32 Dose: 4 mg Guaifenesin/Dextromethorphan (Robitussin Dm) 10 ml PO Q6H [facility] Last Admin: 03/22/17 05:55 Dose: 10 ml Cefazolin Sodium 2 gm/ Sodium (Chloride) 100 mls @ 200 mls/hr IVPB Q8 [facility] PRN Reason: Protocol Last Admin: 03/22/17 05:55 Dose: 200 mls/hr Lactated Ringer's (Lactated Ringer's) 1,000 mls @ 75 mls/hr IV .[id number] [facility] Stop: 03/22/17 16:16 Lactic Acid (Lac-Hydrin 12% Cream (140 G)) 0 ea TOP DAILY PRN PRN Reason: Dry skin Lactic Acid (Lac-Hydrin 12% Cream (140 G)) 0 ea TOP DAILY [facility] Last Admin: 03/21/17 10:59 Dose: 1 applic Loratadine (Claritin) 10 mg PO DAILY [facility] Last Admin: 03/21/17 10:58 Dose: 10 mg Metformin HCl (Glucophage) 850 mg PO BID [facility] Last Admin: 03/21/17 17:32 Dose: 850 mg Oseltamivir Phosphate (Tamiflu Cap) 75 mg PO BID [facility] PRN Reason: Protocol Stop: 03/24/17 18:01 Last Admin: 03/21/17 17:32 Dose: 75 mg Oxycodone/Acetaminophen (Percocet 5/325 Mg Tab) 1 tab PO Q6H PRN PRN Reason: Pain, moderate (4-7) Stop: 03/25/17 09:57 Oxycodone/Acetaminophen (Percocet 5/325 Mg Tab) 2 tab PO Q6H PRN PRN Reason: Pain, severe (8-10) Stop: 03/25/17 09:57 - Constitutional Appears: Non-toxic - Head Exam Head Exam: NORMAL INSPECTION - ENT Exam ENT Exam: Mucous Membranes Moist - Neck Exam Neck Exam: absent: Meningismus - Respiratory Exam Respiratory Exam: Decreased Breath Sounds - Cardiovascular Exam Cardiovascular Exam: +S1, +S2 - GI/Abdominal Exam GI & Abdominal Exam: Soft. absent: Tenderness - Extremities Exam Additional comments: right foot with dressings in place Assessment and Plan - Assessment and Plan (Free Text) Plan: Assessment new onset fever due to sepsis from systemic viral illness with Influenza Right foot lateral infected ulcer in a patient S/P partial 5th ray amputation, cannot rule out osteomyelitis or post-op changes on MRI, growing MSSA S/P surgery POD #1 HTN DM dyslipidemia Plan continue Tamiflu day 4 of 5 and continue droplet precautions continue Cefazolin and will monitor clinically; would recommend 4 weeks of antibiotics, but can switch to PO antibiotics on discharge (ie. PO Zyvox), to complete course of therapy - should have weekly ESR, CRP, CBC, CMP while on antibiotics
--- NOTE | 2017-03-22 22:20 | DS ---
HISTORY OF PRESENT ILLNESS: This is a 56-year-old male who had come into the hospital because he had a diabetic foot ulcer. Patient was taken to the OR and had a local debridement. Patient is going to be finishing 4 weeks' of antibiotics. Patient is currently comfortable and has no complaints of any headaches or dizziness. He actually has flu as well. PHYSICAL EXAMINATION: VITAL SIGNS: Temperature is 97.9, pulse is 75, blood pressure is 148/87, respirations 18. GENERAL: Patient is lying in bed, flat, comfortable. HEENT: No oral lesion. Anicteric sclerae. Moist mucosa. NECK: No JVD, adenopathy, or thyromegaly. CARDIOVASCULAR: S1 and S2, regular. No murmurs, rubs, or gallops. LUNGS: Clear to auscultation bilaterally. No wheeze, rales, or rhonchi. ABDOMEN: Bowel sounds are positive, soft, nontender and nondistended. EXTREMITIES: No cyanosis, clubbing or edema. ASSESSMENT: 1. Right fifth toe with nonhealing ulcer, status post debridement. 2. Fever, resolved. 3. Peripheral arterial disease. 4. Diabetes type 2. 5. Diabetic neuropathy. 6. Thoracic kyphosis. PLAN: Patient is currently comfortable. He is finishing his Tamiflu treatment today. Patient can be switched to p.o. Zyvox and complete 4 weeks' of antibiotics. He is going to follow with Dr Ghotra for his foot ulcer. He is going to continue his Amaryl for his diabetes and carvedilol. He is going to continue with amlodipine for hypertension. He is on Lipitor for dyslipidemia. Condition is stable. Eduard Bergman MD
[2017-03-23] MEDS: guaiFENesin DM 200 mg-20 mg/10 ml UD PO SCH ×2 (02:15→05:34)
[2017-03-23] MEDS: ceFAZolin 2 GM in Sodium Chloride 0.9% 100 ML IVPB SCH (05:34)
--- NOTE | 2017-03-23 07:56 | PN ---
DATE: 03/23/2017 SUBJECTIVE: The patient has no complaints of any chest pain. No shortness of breath. No headache or dizziness. PHYSICAL EXAMINATION: VITAL SIGNS: Temperature is 98.8, pulse is 74, blood pressure is 132/72, and respirations 20. GENERAL: The patient is lying in bed, flat, comfortable. HEENT: No oral lesion. Anicteric sclerae. Moist mucosa. NECK: No JVD, adenopathy, or thyromegaly. CARDIOVASCULAR: S1 and S2, regular. No murmurs, rubs, or gallops. LUNGS: Clear to auscultation bilaterally. No wheeze, rales, or rhonchi. ABDOMEN: Bowel sounds are positive, soft, nontender and nondistended. EXTREMITIES: No cyanosis, clubbing or edema. ASSESSMENT: 1. Right fifth toe nonhealing ulcer, status post debridement of the right fifth toe ulcer, postop day #1. 2. Fever, resolved. 3. Peripheral arterial disease. 4. Diabetes type 2. 5. Diabetic neuropathy. 6. Thoracic kyphosis. PLAN: The patient is currently comfortable. He is being followed by Podiatry and Infectious Disease. I reviewed their notes. The patient is on Tamiflu for flu. The patient is on cefazolin. We should be able to switch to p.o. antibiotic Zyvox and discharge the patient home. The patient is on loratadine. He is going to be on carvedilol. He is on metformin for his diabetes. He is on Lipitor for his dyslipidemia. He is on Norvasc for hypertension. The patient is on a heart-healthy diet. Eduard Bergman MD
[2017-03-23] MEDS: Albuterol-Ipratrop 3 mg / 0.5 (3 ml) UD IH SCH (08:10)
[2017-03-23 08:30] VITALS: BP 151/82; PULSE 56; RESP 18; TEMP 98; O2SAT 96
[2017-03-23] MEDS: Ammonium Lactate 12% Cream (140 g) TOP SCH (10:12)
--- NOTE | 2017-03-23 11:08 | PN ---
DATE: 03/23/2017 SUBJECTIVE: This is a 56-year-old diabetic male seen status post 1-day amputation of the residual portion of the fifth proximal phalanx and the cartilage from the stiff metatarsal head. He did have positive OM of that residual proximal phalanx on MRI and it was removed in toto yesterday. Yesterday's surgery revealed good supply. He had his cartilage after removal of the proximal phalanx was noted to be in good hard bone and there was no pus in remaining metatarsal head post removal of that cartilage. The patient is seen at bedside. He states he is feeling well. He has no pain and he has not used any Percocet. PHYSICAL EXAMINATION: VITAL SIGNS: Show a temperature of 98, his pulse is 66, his blood pressure is 151/82, and respirations are 18. The labs have not been redone since 03/14/2017. His microbiology from the OR is pending. His previous microbiology was positive to Staphylococcus aureus and it was a sensitive Staphylococcus aureus. I am suggesting that the patient be discharged home on Levaquin p.o. and I can follow the pathology from the bone on an outpatient basis. The patient's foot was changed today, the sutures are all intact, there is no dehiscing, there is no swelling, there is no redness, there is no fluctuance, and the patient states again there is no pain. His foot was redressed. He does have a wedge shoe to offload him. He is to [facility] up [facility] on Monday at which time, we will follow his on pathology and I did speak to Dr. Bergman regarding the same. The patient will be seen and followed on Monday. Flor Ghotra DPM
--- NOTE | 2017-03-27 13:07 | DS ---
This is a 56-year-old male who was admitted to the hospital with a right fifth toe ulcer. The patient was taken to the OR for debridement. The patient also was found to have flu. He was treated with medications. Patient is currently comfortable. Please see the note dictated on 03/23/2017 for details. Eduard Bergman MD
--- NOTE | 2017-03-30 06:17 | OP ---
PROCEDURE DATE: 03/22/2017 SURGEON: Flor Ghotra DPM. YOUTH DEVELOPMENT PROFESSIONAL: Binh Gutierrez, PGY-I. ANESTHESIOLOGIST: Dr. Corea. TYPE OF ANESTHESIA: IV sedation with local. PREOPERATIVE DIAGNOSIS: Infected diabetic ulcer with underlying osteomyelitis of partial right fifth digit. POSTOPERATIVE DIAGNOSIS: Infected diabetic ulcer with underlying osteomyelitis of partial right fifth digit. NAME OF PROCEDURE: Debridement of right fifth digit ulceration with removal of remaining fifth proximal phalanx and fifth metatarsal head. INDICATIONS: The patient is a 56-year-old male with the above diagnosis. The patient has exhausted all conservative treatments at this time and now requires surgical intervention. The patient signed the consent after careful explanation of risks, benefits, complications, and alternatives of the surgical procedure. No guarantees were given nor implied. N.p.o status was confirmed prior to taking the patient to the OR. PREPARATION: The patient was brought into the operating room and placed on the operating room table in a supine position. Time-out was performed for identification of the correct patient and procedure. After induction of IV sedation, the patient received a total of 20 mL of 2% lidocaine plain in a reverse Chawla fashion to the right fifth ray. The right lower extremity was then prepped and draped in a normal sterile manner and the procedure began. No tourniquet was used during the procedure. DESCRIPTION OF PROCEDURE: Attention was then turned to the right fifth digit which was noted to have been previously partially amputated with only a small stub remaining. On the stub, there was noted to be a full-thickness ulceration with fibrogranular base and periwound erythema noted. Using a fresh #15 blade, an elliptical incision was made down to the level of bone around the ulcer site. The ulcer was then excisionally debrided and removed from the field. Attention was then turned to the underlying bone which was noted to be the remainder of the fifth proximal phalanx that was left over from the patient's previous fifth digit partial amputation. This bone was disarticulated at the fifth metatarsophalangeal joint, removed from the field and sent to Pathology for examination. Attention was then turned to the exposed head of the right fifth metatarsal. Using a Micro sagittal saw on power the head of the metatarsal was cut and surgically excised from the field as well. The surgical site was then flushed with copious amounts of normal sterile saline using a bulb syringe. The surgical site was then suture closed with 3-0 Vicryl deep sutures and 3-0 nylon superficial sutures and dressed with Adaptic gauze and Coban. POST OPERATIVE CONDITION: The patient tolerated the anesthesia and procedure well and was escorted to the recovery room with vital signs stable and neurovascular status intact to the right lower extremity. The patient is to remain partial weightbearing to heel in a wedge shoe on his right foot. Podiatry will continue to follow the patient while he is in-house and upon discharge from the hospital, the patient will follow up with Dr. Ghotra in the wound care center at his next regularly scheduled appointment. Binh Gutierrez DPM Flor Ghotra DPM [email or web address]
== END 2017-03-23 11:16 | disposition home or self-care (01) | DRG 503 ==
LOC: ED 14:38 → ERH 18:44 → 5RNO 23:08
PROVIDERS: ADMIT Internal Medicine; ATTEND Internal Medicine
PROC: 0Y6X0Z1 Detachment at Right 5th Toe, High, Open Approach (ICD-10-PCS; principal; 2017-03-22 07:30)
PROC: 0HBMXZZ Excision of Right Foot Skin, External Approach (ICD-10-PCS; 2017-03-22 07:30)
DX: T87.43 Infection of amputation stump, right lower extremity (principal); A41.9 Sepsis, unspecified organism; E11.40 Type 2 diabetes mellitus with diabetic neuropathy, unspecified; E11.51 Type 2 diabetes mellitus with diabetic peripheral angiopathy without gangrene; E11.319 Type 2 diabetes mellitus with unspecified diabetic retinopathy without macular edema; M86.9 Osteomyelitis, unspecified; L03.115 Cellulitis of right lower limb; T87.89 Other complications of amputation stump; E11.622 Type 2 diabetes mellitus with other skin ulcer; E11.621 Type 2 diabetes mellitus with foot ulcer; L97.519 Non-pressure chronic ulcer of other part of right foot with unspecified severity; B95.61 Methicillin susceptible Staphylococcus aureus infection as the cause of diseases classified elsewhere; L03.031 Cellulitis of right toe; E11.69 Type 2 diabetes mellitus with other specified complication; E78.5 Hyperlipidemia, unspecified; H35.30 Unspecified macular degeneration; I10 Essential (primary) hypertension; J11.1 Influenza due to unidentified influenza virus with other respiratory manifestations; M40.204 Unspecified kyphosis, thoracic region; Z79.84 Long term (current) use of oral hypoglycemic drugs; Z79.899 Other long term (current) drug therapy; Z82.49 Family history of ischemic heart disease and other diseases of the circulatory system; Z83.3 Family history of diabetes mellitus; Z87.891 Personal history of nicotine dependence; Z89.421 Acquired absence of other right toe(s); R40.2412 Glasgow coma scale score 13-15, at arrival to emergency department